=== PATIENT | male | born 1965 | race Caucasian/White ===

== ENCOUNTER 2017-04-11 20:22 | Emergency (ER) | payer MEDICAID, OTHER, SELFPAY ==
--- NOTE | 2017-04-11 20:50 | XR_ITS ---
XR shoulder RT min 2V HISTORY: Pain following injury ITS.REASON: INJURIED SHOULDER WHEN FELL ORDERING PHYSICIAN: Naomi Vega PATIENT AGE: 51 years COMPARISON: None FINDINGS: No fracture or dislocation. No lytic or blastic change. There is normal mineralization. The joint spaces are well-preserved. No significant degenerative/arthritic changes. No erosive changes evident. IMPRESSION: Negative, no acute finding
[2017-04-11 22:02] VITALS: BP 124/85; PULSE 72; RESP 20; O2SAT 97; BMI 41.4
--- NOTE | 2017-04-11 22:12 | HMH.EDUTC ---
[facility] Disposition Clinical Impression: Right anterior shoulder pain Disposition: Home, Self-Care Condition on Discharge: Good Instructions: How to Use a Sling, How To Perform RICE (Rest, Ice, Compress, Elevate), DI for Shoulder Pain Additional Instructions: * See restrictions on workman's comp form. Basically no use right arm until follow up with primary care. * Rest * ice 15-20 mins 3-4 times a day * sling for support and rest. * naproxen every 12 hours taken with meals for pain and inflammation * Remember you had a toradol shot around 1030pm, similiar anti-inflammatory in clinic * No additional anti-inflammatories like motrin, aleve, advil with the above amount of ibuprofen. You CAN still take Tylenol every 4 hours as needed if you need something more for pain. Prescriptions: Naproxen 500 mg PO BID #20 tab Referrals: Scooter Arredondo MD [Primary Care Provider] - (IMMEDIATELY for new or worsening symptoms AND in 3-5 days for follow up exam and review restrictions. Call in the morning and schedule follow up for around Tuesday. be sure to tell them workman's comp and already seen in [facility]. Xray negative. ) Time of Disposition: 22:22 Medical Decision Making Vital Signs: 04/11/17 22:02 Pulse Rate [Brachial] 72 Respiratory Rate 20 Blood Pressure [Right Arm] 124/85 Blood Pressure Mean [Right Arm] 98 Blood Pressure Source [Right Arm] Automatic Cuff Blood Pressure Position [Right Arm] Sitting 02 Sat by Pulse Oximetry 97 Oxygen Delivery Method Room Air Orders (Tests/Meds): ED MEDICATIONS Discontinued Medications Generic Name Dose Route Start Last Admin Trade Name Modesta PRN Reason Stop Dose Admin Ketorolac Tromethamine 60 mg 04/11/17 22:17 04/11/17 22:30 Toradol 60mg/2ml Vial IM 04/11/17 22:18 60 mg ONCE ONE Administration - Radiology Data #1 Image(s): Shoulder (right) Image Reviewed: Yes I have reviewed radiologist's interpretation Preliminary Findings: Normal/NAD (per [facility]) - Timo Inquiry Pt receiving controlled substance: No [facility] HPI - General Stated complaint: WC [id number] INJURED R SHOULDER Time Seen by Provider: 04/11/17 22:00 Mode of Arrival: Ambulatory Source of Information: Patient Limitations: No Limitations Description of Symptoms (Recalled from Triage Doc. by RN): LIFTING AN APC AT WORK TO MOVE IT, TRIPPED AND FELL ON HIS RT SHOULDER. HEENT Symptoms (Recalled from RN notes): No Resp Symptoms (Recalled from RN notes): No Skin Symptoms (Recalled from RN notes): No MS Symptoms (Recalled from RN notes): Yes Functional Status (Recalled from RN notes): NA - History of Present Illness Provider Complaint: c/o right shoulder pain. 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 Reports it hit more on lateral shoulder/upper arm but pain is more so anterior shoulder. Didn't mention it to anyone. Planned to work it out . ended up mentioning it to someone when wasn't any better. They suggested seeking treatment, at least for xrays , since occurred at work. Hasn't taken or tried anything for pain. pt is not sure if UDS required and unable to reach anyone to make that decision. - Related Data Home Medications Medication Instructions Recorded Confirmed allopurinol 100 mg tablet 100 mg PO QDAY 03/29/17 04/11/17 gabapentin 300 mg capsule 300 mg PO TID 03/29/17 lisinopril 10 mg tablet 10 mg PO QDAY 03/29/17 Previous Rx's Medication Instructions Recorded loratadine 10 mg tablet 10 mg PO QDAY #14 tab 03/29/17 Naproxen 500 mg PO BID #20 tab 04/11/17 Allergies Allergy/AdvReac Type Severity Reaction Status Date / Time hydrocodone [HYDROCODONE] Allergy Unknown Verified 03/29/17 13:51 - Worker's Comp Is this a Worker's Comp case?: Yes [facility] History 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: Reports:: Hypertension Other Medical Histo
--- NOTE | 2017-04-11 22:17 | ED_ITS ---
[facility] [place] Clinical Impression: Right anterior shoulder pain Disposition: Home, Self-Care Condition on Discharge: Good Instructions: How to Use a Sling, How To Perform RICE (Rest, Ice, Compress, Elevate), DI for Shoulder Pain Additional Instructions: * See restrictions on workman's comp form. Basically no use right arm until follow up with primary care. * Rest * ice 15-20 mins 3-4 times a day * sling for support and rest. * naproxen every 12 hours taken with meals for pain and inflammation * Remember you had a toradol shot around 1030pm, similiar anti-inflammatory in clinic * No additional anti-inflammatories like motrin, aleve, advil with the above amount of ibuprofen. You CAN still take Tylenol every 4 hours as needed if you need something more for pain. Prescriptions: Naproxen 500 mg PO BID #20 tab Referrals: Scooter Arredondo MD [Primary Care Provider] - (IMMEDIATELY for new or worsening symptoms AND in 3-5 days for follow up exam and review restrictions. Call in the morning and schedule follow up for around Tuesday. be sure to tell them workman's comp and already seen in [facility]. Xray negative. ) Time of Disposition: 22:22 Medical Decision Making Vital Signs: 04/11/17 22:02 Pulse Rate [Brachial] 72 Respiratory Rate 20 Blood Pressure [Right Arm] 124/85 Blood Pressure Mean [Right Arm] 98 Blood Pressure Source [Right Arm] Automatic Cuff Blood Pressure Position [Right Arm] Sitting 02 Sat by Pulse Oximetry 97 Oxygen Delivery Method Room Air Orders (Tests/Meds): ED MEDICATIONS Discontinued Medications Generic Name Dose Route Start Last Admin Trade Name Modesta PRN Reason Stop Dose Admin Ketorolac Tromethamine 60 mg 04/11/17 22:17 04/11/17 22:30 Toradol 60mg/2ml Vial IM 04/11/17 22:18 60 mg ONCE ONE Administration - Radiology Data #1 Image(s): Shoulder (right) Image Reviewed: Yes I have reviewed radiologist's interpretation Preliminary Findings: Normal/NAD (per [facility]) - Timo Inquiry Pt receiving controlled substance: No [facility] [place] - General Stated complaint: WC [id number] INJURED R SHOULDER Time Seen by Provider: 04/11/17 22:00 Mode of Arrival: Ambulatory Source of Information: Patient Limitations: No Limitations Description of Symptoms (Recalled from Triage Doc. by RN): LIFTING AN APC AT WORK TO MOVE IT, TRIPPED AND FELL ON HIS RT SHOULDER. HEENT Symptoms (Recalled from RN notes): No Resp Symptoms (Recalled from RN notes): No Skin Symptoms (Recalled from RN notes): No MS Symptoms (Recalled from RN notes): Yes Functional Status (Recalled from RN notes): NA - History of Present Illness Provider Complaint: c/o right shoulder pain. 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 Reports it hit more on lateral shoulder/upper arm but pain is more so anterior shoulder. Didn't mention it to anyone. Planned to work it out . ended up mentioning it to someone when wasn't any better. They suggested seeking treatment, at least for xrays , since occurred at work. Hasn't taken or tried anything for pain. pt is not sure if UDS required and unable to reach anyone to make that decision. - Related Data Home Medications Medication Instructions Recorded Confirmed allopurinol 100 mg tablet 100 mg PO QDAY
== END 2017-04-11 22:31 | disposition home or self-care (01) ==
PROVIDERS: Emergency Provider Nurse Practitioner Family; PCP Emergency Medicine
DX: M25.511 Pain in right shoulder (principal); I10 Essential (primary) hypertension; M10.9 Gout, unspecified; F17.210 Nicotine dependence, cigarettes, uncomplicated; Z79.899 Other long term (current) drug therapy
CPT/HCPCS: 73030; 96372; 99202

== ENCOUNTER → 2017-10-27 11:32 | Outpatient (CLI) | payer MEDICAID, SELFPAY ==
--- NOTE | 2017-10-27 11:35 | XR_ITS ---
XR foot wt bearing LT 3V HISTORY: ITS.REASON: pain ORDERING PHYSICIAN: Ethel Vinson DPM PATIENT AGE: 51 years COMPARISON: 10/02/2015 FINDINGS: No fracture or dislocation. No lytic or blastic change. There is normal mineralization.. The joint spaces are well-preserved. No significant degenerative/arthritic changes. No erosive changes evident. There are mild osteoarthritic changes of the first metatarsophalangeal joint IMPRESSION: Mild osteoarthritis of the first MTP joint otherwise negative
--- NOTE | 2017-10-27 11:35 | XR_ITS ---
XR foot wt bearing RT 3V HISTORY: ITS.REASON: pain ORDERING PHYSICIAN: Ethel Vinson DPM PATIENT AGE: 51 years COMPARISON: 02/01/2015 FINDINGS: There are prominent hypertrophic changes at the first metatarsophalangeal joint dorsally. Mild osteoarthritic change present at the first MTP joint. No fracture, dislocation, or other significant anomalies. IMPRESSION: Osteoarthritic change with bony hypertrophy at the first metatarsophalangeal joint not significant changed
== END ==
PROVIDERS: Visit Provider Podiatrist
DX: M79.672 Pain in left foot (principal)
CPT/HCPCS: 73630

== ENCOUNTER → 2017-11-28 15:06 | Outpatient (CLI) | payer MEDICAID, SELFPAY ==
--- NOTE | 2017-11-28 15:07 | CT_ITS ---
CT sinus wo con CLINICAL INDICATION: ITS.REASON: sinusitis ORDERING PHYSICIAN: Sreedhar Mckinney MD PATIENT AGE: 52 years COMPARISON: None TECHNIQUE:Axial images obtained with sagittal and coronal reformats. All CT scans at the facility use one or more dose reduction, viz: automated exposure control, ma/kV adjustment per patient size (including targeted exams where dose is matched to indication, i.e. head), or iterative reconstruction technique. FINDINGS: There is mild mucosal thickening of the ethmoid sinuses. Mild mucosal thickening involves the floor of both maxillary sinuses in the roof of the left maxillary sinus. A small bony septation is present along the roof of the left maxillary sinus with mucosal thickening or retention cyst. Frontal sinuses have an unremarkable appearance. No air-fluid levels are evident. No mastoid effusion. There is moderate rightward nasal septal deviation anteriorly with narrowing of the nasal canal. A small sclerotic focus is present in the left frontal's bone inferiorly and may be due to small bone island The orbits have an unremarkable appearance. Unremarkable appearing TMJs IMPRESSION: 1. Mild ethmoid and maxillary sinus disease. No evidence of acute sinusitis. 2. Rightward nasal septal deviation
== END ==
PROVIDERS: PCP Nurse Practitioner Family; Visit Provider Otolaryngology
DX: J30.9 Allergic rhinitis, unspecified (principal); J32.0 Chronic maxillary sinusitis; J34.2 Deviated nasal septum
CPT/HCPCS: 70486

== ENCOUNTER → 2019-10-25 16:45 | Outpatient (CLI) | payer BC, SELFPAY ==
[2019-10-25 17:33] LABS: Alanine Aminotransferase 43 U/L (12-78); Albumin Level 4.3 g/dl (3.5-5.0); Albumin/Globulin Ratio 1.3 (1.1-1.8); Alkaline Phosphatase 97 U/L (38-126); Anion Gap 15.8 mEq/L (5-15); Aspartate Amino Transferase 34 U/L (17-59); Basophils # 0.1 K/mm3 (0-0.2); Basophils % 0.6 % (0.1-2.0); Bilirubin,Total 0.3 mg/dl (0.2-1.3); Blood Urea Nitrogen 8 mg/dl (9-20); Calcium 9.8 mg/dl (8.4-10.2); Carbon Dioxide 29 mmol/L (22.0-30.0); Chloride 100 mmol/L (98-107); Chol/HDL Ratio 4.9 (1-3.5); Cholesterol 238 mg/dl (140-200); Eosinophils # 0.4 K/mm3 (0.0-0.4); Eosinophils % 3.8 % (0.1-12.0); Estimated Glomerular Filt Rate 101 ml/min (>60); GFR (African American) 122 ML/MIN (>60); Globulin 3.4 g/dL (1.3-3.2); Glucose 86 mg/dl (74-100); HDL Cholesterol 49 mg/dl (40-60); Hematocrit 43.5 % (42.0-52.0); Hemoglobin 15.2 g/dL (14.1-18.0); Lymphocytes # 2.5 K/mm3 (0.7-4.5); Lymphocytes % 26.3 % (10-50); Mean Corpuscular Hemoglobin 31.8 pg (27.0-31.2); Mean Corpuscular Volume 90.9 fl (80-94); Monocytes # 0.4 K/mm3 (0.1-1.0); Monocytes % 4.3 % (1.7-9.3); Neutrophils # 6.1 K/mm3 (1.8-7.8); Platelet Count 253 K/mm3 (142-424); Potassium 4.8 mmoL/L (3.5-5.1); Red Blood Count 4.78 M/mm3 (4.60-6.20); Red Cell Distribution Width 13.4 % (11.5-17.5); Sodium 140 mmol/L (136-145); Total Protein,Serum 7.7 g/dl (6.3-8.2); Triglycerides 130 mg/dl (30-150); Uric Acid 7.2 mg/dl (3.5-8.5); VLDL Cholesterol 26 mg/dL (0-40); White Blood Count 9.3 K/mm3 (4.8-10.8)
[2019-10-25 17:44] LABS: Direct LDL Cholesterol 157.77 mg/dL (100-129)
[2019-10-25 18:04] LABS: Prostate Specific Ag Screen 0.4 ng/ml (0.0-4.0); Thyroid Stimulating Hormone 1.27 uIU/mL (0.465-4.68)
== END ==
PROVIDERS: Visit Provider Nurse Practitioner Family
DX: I10 Essential (primary) hypertension (principal); R53.83 Other fatigue; M10.9 Gout, unspecified; Z12.5 Encounter for screening for malignant neoplasm of prostate
CPT/HCPCS: 80053; 80061; 84436; 84443; 84550; 85025; G0103

== ENCOUNTER → 2020-05-08 15:18 | Outpatient (CLI) | payer BC, SELFPAY ==
--- NOTE | 2020-05-08 15:18 | CT_ITS ---
PROCEDURE: CT SINUS WO CON CLINICAL HISTORY: Sinusitis Congestion, deviated septum, chronic sinusitis COMPARISON: CT SINUSWO CT sinus wo con from 11/28/2017 TECHNIQUE: Axial images obtained with sagittal and coronal reformats. All CT scans at the facility use one or more dose reduction, viz: automated exposure control, ma/kV adjustment per patient size (including targeted exams where dose is matched to indication, i.e. head), or iterative reconstruction technique. FINDINGS: There is an air-fluid level in the left frontal sinus. There is extensive debris throughout the ethmoid sinuses with prominent mucosal thickening and mucous retention cysts in the bilateral maxillary sinuses and in the midline sphenoid sinus. These findings were not visible on the prior study. The fine bony structures are faintly visualized. The nasal septum is midline. There is complete occlusion every sinus drainage pathway. There is no involvement of the orbits or skull base. The mastoid air cells are clear. The middle ears are clear. IMPRESSION: New severe diffuse sinusitis with frontal sinus air-fluid level and complete occlusion of all sinus drainage pathways. Dictated by: Amee Bailey MD 05/08/2020 17:35 Amee Bailey MD in [place] 05/08/2020 17:35
== END ==
PROVIDERS: PCP Nurse Practitioner Family; Visit Provider Otolaryngology
DX: J32.9 Chronic sinusitis, unspecified (principal); J34.2 Deviated nasal septum
CPT/HCPCS: 70486

== ENCOUNTER → 2020-06-10 09:42 | Outpatient (CLI) | payer BC, SELFPAY ==
--- NOTE | 2020-06-10 10:13 | ECG_ITS ---
APPROVED REPORT Exam: Resting ECG HR:63 bpm ECG Measurements Heart Rate 63 AXES ID 172 P 31 QRSd 94 QRS 43 QT 402 T 33 QTc 411 Conclusion Normal sinus rhythm Normal ECG Electronically signed by : Everardo Zeng, 06/11/2020 17:48:21
[2020-06-10 10:25] LABS: Basophils # 0.1 K/mm3 (0-0.2); Basophils % 0.8 % (0.1-2.0); Eosinophils # 0.4 K/mm3 (0.0-0.4); Eosinophils % 5.9 % (0.1-12.0); Hematocrit 44.7 % (42.0-52.0); Hemoglobin 14.7 g/dL (14.1-18.0); Lymphocytes # 2.4 K/mm3 (0.7-4.5); Lymphocytes % 31.7 % (10-50); Mean Corpuscular HGB Conc 32.8 g/dL (31.8-35.4); Mean Corpuscular Hemoglobin 30.3 pg (27.0-31.2); Mean Corpuscular Volume 92.5 fl (80-94); Mean Platelet Volume 7.5 fl (7.4-10.4); Monocytes # 0.4 K/mm3 (0.1-1.0); Monocytes % 5.5 % (1.7-9.3); Neutrophils # 4.2 K/mm3 (1.8-7.8); Neutrophils % 56.2 % (37.0-80.0); Platelet Count 244 K/mm3 (142-424); Red Blood Count 4.83 M/mm3 (4.60-6.20); White Blood Count 7.5 K/mm3 (4.8-10.8)
[2020-06-10 11:36] LABS: Coronavirus 19 IgG Antibody Negative (Negative); Coronavirus 19 IgM Antibody Negative (Negative)
== END ==
PROVIDERS: Visit Provider Otolaryngology
DX: Z01.818 Encounter for other preprocedural examination (principal); Z20.822 Contact with and (suspected) exposure to COVID-19; J34.2 Deviated nasal septum
CPT/HCPCS: 36415; 85025; 86328; 93005

== ENCOUNTER 2020-06-12 07:48 | Day surgery (SDC) | payer BC, SELFPAY ==
[2020-06-10 12:44] VITALS: BMI 41.5
[2020-06-12] VITALS (9 sets, daily range): BP systolic 137–154; BP diastolic 65–100; PULSE 70–85; RESP 16–20; TEMP 36.4–37; O2SAT 91–96
--- NOTE | 2020-06-12 09:41 | P.PN_ITS ---
[facility] Anesthesia Checklist - Patient Identification Patient Identification: Arm Band - Structural Data Admitted From: Home Planned Operative Procedure/s: nasal septoplasty Consent for Planned Operative Procedure(s) Verified: Yes Verified Documents: Surgical Consent, History and Physical - NPO Status Verified Time NPO: 00:00 - Additional verifications Anesthesia Reactions: No Hx Blood Transfusions: No Blood Transfusion Reaction: No - Airway Assessment C-Spine Mobility Assessed: Yes (mp2) TMJ Mobility Assessed: Yes Dentition: Poor Dentition - Neurological Assessment Level of Consciousness: Awake, Alert - Anesthesia Plan Anesthesia Risk discussed: Yes Anesthesia Plan: Verified ASA Class: III Anesthesia Type: General [facility] History I have reviewed the patient's past medical history: Yes 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: Reports:: Hypertension Denies:: Cancer, Diabetes Mellitus Type 1, Diabetes Mellitus Type 2, Internal Pacemaker, MRSA, Seizures *Have you ever received a pneumonia vaccine?: No *Have you received a flu vaccine this season?: Yes Other 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: Reports: Sinus Problems, Other. Denies: Blood Transfusion Reaction Anesthesia experience/problems:: nac Other Surgeries: Yes: Other. No: Pacemaker Amputation: No Fractures: No - *Social History Last grade of school completed: 11th or 12th Smoking Status: Light tobacco smoker Tobacco Type: smokeless tobacco Alcohol Intake: never Alcohol Intake Frequency:: a few times a week Substance Use Type: denies use *Occupational Status:: employed Housing: house *Travel in the last 8 weeks: None Family Hx:: Diabetes, Heart Attack
--- NOTE | 2020-06-12 10:02 | HMH.OPNOTE ---
Date of procedure: 06/12/20 Pre-op Diagnosis:: 1. Deviated nasal septum to the right with 90% nasal airflow blockage Post-op Diagnosis:: same Procedure performed:: Nasal septoplasty Surgeon:: Sreedhar Mckinney MD ALINING INSPECTOR:: Rodney Santoro Anesthesia: GETA Estimated blood loss (mL): 20 Operative findings:: same Operative note:: With the patient under general anesthetic the face was prepped and draped the eyes were protected with Steri-Strips the nose was decongested with topical cocaine. And 5 cc of 2% lidocaine with epi were injected into the nasal antral yepez and septum. Left hemitransfixion incision was made in the mucoperichondrium and mucoperiosteum was elevated from both sides of the nasal septum the septum was moderately vascular and bleeding was stopped with bipolar cautery. The quadrangular cartilage was trimmed anteriorly and inferiorly and the septum was placed in the midline and held there with transfixion and hemitransfixion chromic sutures. Bleeding Was stopped with bipolar cautery. Surgicel snow was placed between the flaps. The patient Tolerated the procedure well and was sent to recovery in good general condition. Condition: stable Disposition: PACU Complications:: none
--- NOTE | 2020-06-12 10:08 | HMH.ANESI ---
[facility] Anesthesia Record Part I Intake, IV Amount: 800 Estimated blood loss (mL): 5 Urine output (mL): 0 Blood Pressure: 150/83 SaO2: 91 Pulse Rate: 80 Respiratory Rate: 16 Temperature: 98.1 F Patient is:: Drowsy, Stable Stable to PACU at:: 10:05
[2020-06-13 10:09] VITALS: BP 149/100; PULSE 78; TEMP 36.6
--- NOTE | 2020-06-13 10:09 | P.PN_ITS ---
[facility] Anesthesia Record Part II Discharge Time: 10:35 Destination: Surgical Day Care (OP Surgery) PACU nurse assessment reviewed?: Yes Patient Condition:: Good Anesthesia Complications:: None Swallowing reflex intact?: Yes Cyanosis?: No Blood Pressure: 149/100 Pulse Rate: 78 Temperature: 97.9 F Mental Status: Alert & Oriented Pain level:: 0 Nausea and/or vomitting:: None Intake, IV Amount: 0
== END 2020-06-12 11:07 | disposition home or self-care (01) ==
LOC: OR 07:48
PROVIDERS: PCP Nurse Practitioner Family; Visit Provider Otolaryngology
PROC: (CPT 30520; principal; 2020-06-12 09:45)
DX: J34.2 Deviated nasal septum (principal); I10 Essential (primary) hypertension; Z79.899 Other long term (current) drug therapy; Z88.2 Allergy status to sulfonamides
CPT/HCPCS: 30520; 96374; 96375; J2405; J2710

== ENCOUNTER → 2020-10-14 09:07 | Outpatient (CLI) | payer BC, SELFPAY ==
--- NOTE | 2020-10-14 09:15 | XR_ITS ---
PROCEDURE: XR CHEST PORTABLE CLINICAL HISTORY: cough/COVID OUTPATIENT COMPARISON: CR CXR2V XR chest 2V from 08/02/2017 CR XR CHEST AP from 03/16/2019 FINDINGS: The cardiomediastinal silhouette and pulmonary vascularity are within normal limits. The lungs are clear without infiltrates, suspicious nodules, or pleural effusions. There is evidence of old granulomatous disease. No acute bony findings. IMPRESSION: No acute findings. Dictated by: Wiley Brooks MD 10/14/2020 09:44 Wiley Brooks MD in [place] 10/14/2020 09:44
[2020-10-14 09:34] LABS: MANUAL DIFFERENTIAL MANUAL DIFFERENTIAL (MANUAL DIFF)
[2020-10-14 09:39] LABS: Basophils # 0.1 K/mm3 (0-0.2); Basophils % 0.6 % (0.1-2.0); Eosinophils # 0.6 K/mm3 (0.0-0.4); Eosinophils % 6.6 % (0.1-12.0); Hematocrit 45.1 % (42.0-52.0); Hemoglobin 14.9 g/dL (14.1-18.0); Lymphocytes # 2.5 K/mm3 (0.7-4.5); Lymphocytes % 27.5 % (10-50); Mean Corpuscular HGB Conc 32.9 g/dL (31.8-35.4); Mean Corpuscular Hemoglobin 29.6 pg (27.0-31.2); Mean Corpuscular Volume 90.1 fl (80-94); Mean Platelet Volume 7.6 fl (7.4-10.4); Monocytes # 0.5 K/mm3 (0.1-1.0); Monocytes % 5.2 % (1.7-9.3); Neutrophils # 5.4 K/mm3 (1.8-7.8); Platelet Count 224 K/mm3 (142-424); Red Blood Count 5.01 M/mm3 (4.60-6.20); Red Cell Distribution Width 13.2 % (11.5-17.5)
[2020-10-14 09:46] LABS: Chloride 107 mmol/L (98-107); Potassium 4.4 mmoL/L (3.5-5.1); Sodium 140 mmol/L (136-145)
[2020-10-14 09:49] LABS: Alanine Aminotransferase 44 U/L (12-78); Albumin Level 4.5 g/dl (3.5-5.0); Albumin/Globulin Ratio 1.3 (1.1-1.8); Alkaline Phosphatase 97 U/L (38-126); Anion Gap 13.4 mEq/L (5-15); Aspartate Amino Transferase 35 U/L (17-59); Bilirubin,Total 0.5 mg/dl (0.2-1.3); Blood Urea Nitrogen 7 mg/dl (9-20); Calcium 9.2 mg/dl (8.4-10.2); Carbon Dioxide 24 mmol/L (22.0-30.0); Estimated Glomerular Filt Rate 100 ml/min (>60); GFR (African American) 121 ML/MIN (>60); Globulin 3.6 g/dL (1.3-3.2); Glucose 102 mg/dl (74-100); Total Protein,Serum 8.1 g/dl (6.3-8.2)
[2020-10-14 11:14] LABS: Eosinophils % 8 % (0-3); Lymphocytes % 26 % (10-50); Monocytes % 5 % (2-9); Neutrophils % 61 % (42-76); Total Cells Counted 100
[2020-10-14 11:15] LABS: Platelet Estimate Normal; RBC Morphology Normal
== END ==
PROVIDERS: PCP Nurse Practitioner Family; Visit Provider Otolaryngology
DX: Z01.812 Encounter for preprocedural laboratory examination (principal); Z11.52 Encounter for screening for COVID-19; J03.90 Acute tonsillitis, unspecified
CPT/HCPCS: 36415; 71045; 80053; 85007; 85014; 85018; 85048; 85049; U0003

== ENCOUNTER 2022-01-03 03:15 | Emergency (ER) | payer OTHER, SELFPAY ==
[2022-01-03 03:16] VITALS: BP 163/91; PULSE 71; RESP 16; TEMP 36.7; O2SAT 98; BMI 42.0
--- NOTE | 2022-01-03 03:43 | HMH.EDURI ---
Discharge Plan Disposition Patient Disposition: Home, Self-Care Prescriptions Prescriptions: New prednisone [prednisone] 20 mg tablet 20 mg PO BID Qty: 10 0RF cephalexin [cephalexin] 500 mg capsule 500 mg PO TID Qty: 30 0RF No Action azelastine 205.5 mcg (0.15 %) spray,non-aerosol 1 spray INTRANASAL BID Qty: 30 3RF Rx Instructions: administer into each nostril nystatin 100,000 unit/mL suspension 5 ml PO DAILY Qty: 60 0RF Rx Instructions: swish and swallow famotidine 20 mg tablet See Rx Instructions .ROUTE .COMPLEX Qty: 30 2RF Dose Instruction: TAKE ONE TABLET BY MOUTH ONCE A DAY Rx Instructions: TAKE ONE TABLET BY MOUTH ONCE A DAY allopurinol 100 mg tablet See Rx Instructions .ROUTE .COMPLEX Qty: 30 2RF Dose Instruction: TAKE ONE TABLET BY MOUTH EVERY DAY FOR GOUT Rx Instructions: TAKE ONE TABLET BY MOUTH EVERY DAY FOR GOUT lisinopril 10 mg tablet See Rx Instructions .ROUTE .COMPLEX Qty: 30 2RF Dose Instruction: TAKE ONE TABLET BY MOUTH EVERY DAY FOR HYPERTENSION Rx Instructions: TAKE ONE TABLET BY MOUTH EVERY DAY FOR HYPERTENSION fexofenadine 180 MG tablet 180 mg PO DAILY Referrals Follow up/Referrals: Anyi Hanley PA [Primary Care Provider] - See instructions Clinical Impressions Clinical Impression: Sinusitis Instructions Patient Instructions: DI for Sinusitis Discharge ED Provider: Scooter Arredondo URI/Sore Throat HPI General Chief Complaint: Upper Respiratory Infection Stated Complaint: Sinus pressure/pain Time Seen by Provider: 01/03/22 03:43 Mode of Arrival: Ambulatory Source of Information: Patient and Medical Record Limitations: No Limitations Description of Symptoms (Recalled from ER Triage Doc. by RN): pt states he has chronic sinus issues and he ishavinf a flare up. tonight he came in because he could not keep handle the pressure under his cpap machine. the pt stated that the pain is in the left side of his head all the way to his jaw. pt states also that he hasnt taken any sinus medication. pt reported that he has a septum surgery last year and it has not helped with his chronic sinus issues. History of Present Illness HPI Narrative: has acute rt facial pain with hx of sinusitis MD Complaint: nasal congestion and sinus pain Onset (ago): day(s) Duration: intermittent Severity: moderate Able to tolerate fluids by mouth: Yes Associated symptoms: denies other symptoms Related Data Home Medications Medication Instructions Recorded Confirmed fexofenadine 180 mg tablet 180 mg PO DAILY allergies 06/10/20 11/11/20 Previous Rx's Medication Instructions Recorded nystatin 100,000 unit/mL oral 5 ml PO DAILY #60 mL 10/31/20 suspension azelastine 205.5 mcg (0.15 %) 1 spray intranasal BID #30 mL 11/11/20 nasal spray famotidine 20 mg tablet See Rx Instructions .Route 06/23/21 .COMPLEX #30 tabs allopurinol 100 mg tablet See Rx Instructions .Route 08/21/21 .COMPLEX #30 tabs lisinopril 10 mg tablet See Rx Instructions .Route 08/21/21 .COMPLEX #30 tabs cephalexin 500 mg capsule 500 mg PO TID #30 caps 01/03/22 prednisone 20 mg tablet 20 mg PO BID #10 tabs 01/03/22 Allergies Allergy/AdvReac Type Severity Reaction Status Date / Time No Known Allergies Allergy Verified 11/11/20 08:50 PFSH PFSH Social History Smoking Status: Unknown if ever smoked alcohol intake: current substance use type: denies use current occupational status: employed Travel in the last 8 weeks: None housing: house current occupation: [employer] caffeine: Yes ROS Obtained: Yes All systems reviewed & no additional complaints except as documented Physical Exam General General appearance: alert Head Head exam: normocephalic Eye Eye exam: Present PERRL and EOMI Expanded ENT Exam TM/Canal exam: Left TM: effusion Neck Neck exam: Present trachea midline Respiratory Respirator
[2022-01-03 03:50] VITALS: BP 163/91; PULSE 77; RESP 18; TEMP 36.7; O2SAT 98
== END 2022-01-03 03:54 | disposition home or self-care (01) ==
PROVIDERS: Emergency Provider Emergency Medicine; PCP Physician Assistant
DX: J06.9 Acute upper respiratory infection, unspecified (principal); R68.84 Jaw pain; R51.9 Headache, unspecified; J32.9 Chronic sinusitis, unspecified; Z79.52 Long term (current) use of systemic steroids; Z79.899 Other long term (current) drug therapy
CPT/HCPCS: 96372; 99283; 99284; J0696

== ENCOUNTER 2022-05-04 09:33 | Emergency (ER) | payer SELFPAY ==
[2022-05-04 09:50] VITALS: BP 138/76; PULSE 80; RESP 19; TEMP 38.2; O2SAT 96; BMI 39.9
--- NOTE | 2022-05-04 10:34 | EXP.UTC ---
Discharge Plan Disposition Patient Disposition: Home, Self-Care Condition: Good Prescriptions Prescriptions: New azithromycin [Zithromax Z-Brent] 250 mg tablet See Rx Instructions .ROUTE .COMPLEX 5 Days Qty: 6 0RF Rx Instructions: For 250 mg dose pack: take 500 mg today (day 1), then 250 mg for 4 days (days 2-5) methylprednisolone [Medrol (Brent)] 4 mg tablets,dose pack See Rx Instructions .Route .COMPLEX 6 Days Qty: 21 0RF Rx Instructions: taper pack; No Action allopurinol 100 mg tablet See Rx Instructions .ROUTE .COMPLEX Rx Instructions: TAKE ONE TABLET BY MOUTH EVERY DAY FOR GOUT lisinopril 10 mg tablet See Rx Instructions .ROUTE .COMPLEX Rx Instructions: TAKE ONE TABLET BY MOUTH EVERY DAY FOR HYPERTENSION Referrals Follow up/Referrals: Kathleen Keith APRN [Primary Care Provider] - See instructions Activity Restrictions/Add. Instructions Additional Instructions/Restrictions: *Monitor Temp, Over the counter Motrin or Tylenol as directed/as needed Tylenol every 4 hours and Motrin every 6 hours (as long as your family doctor has told you that you can take it) for fever or pain. and straight to ER if unable to lower temp less than 101.0 after medication given *Warm salt water gargles may help to soothe the throat *Throat Lozenges? *Warm fluids like tea with honey may help to soothe the throat? *Sleep elevated *Humidifier/Vaporizer Your throat swab was sent for culture. Those results are typically sent to your primary care. Be sure to follow up in 2-3 days with your family doctor/primary care physician if no improvement so they can review those result and treat if necessary. If you don?t have a primary care doctor, I recommend you get one but in the mean time, you will have to return to a walk in clinic Follow up IMMEDIATELY for new or worsening symptoms or no Noticeable improvement over the next 48-72 hours. 911 for difficulty breathing or swallowing Clinical Impressions Clinical Impression: Sinusitis Qualifiers: Sinusitis location: unspecified location Chronicity: unspecified Qualified Code(s): J32.9 - Chronic sinusitis, unspecified Stand Alone Forms Stand Alone Forms: Work/School Release Instructions Patient Instructions: Sinusitis, DI for Sinusitis Discharge ED Provider: Zainab Bautista [facility] [place] HPI General Stated complaint: Chills,Sore throat,Bodyaches Mode of Arrival: Ambulatory Source of Information: Patient Limitations: No Limitations Time Seen by Provider: 05/04/22 10:35 Description of Symptoms (Recalled from Triage Doc. by RN): freezing, aches, cough, MINOR, chest congestion, productive cough HEENT Symptoms (Recalled from RN notes): Yes Resp Symptoms (Recalled from RN notes): No Skin Symptoms (Recalled from RN notes): No MS Symptoms (Recalled from RN notes): No Functional Status (Recalled from RN notes): n/a History of Present Illness Provider Complaint: Patient states that he has been having sinus pain and pressure for over a week States that yesterday he started with cough that is productive at times, sore throat, body aches, chills and headache States that he feels like it is a bad sinus infection so he came in Related Data Home Medications Medication Instructions Recorded Confirmed allopurinol 100 mg tablet See Rx Instructions .Route 05/04/22 05/04/22 .COMPLEX . lisinopril 10 mg tablet See Rx Instructions .Route 05/04/22 05/04/22 .COMPLEX . Previous Rx's Medication Instructions Recorded azithromycin 250 mg tablet See Rx Instructions PO .COMPLEX 5 05/04/22 (Zithromax Z-Brent) days #6 tabs methylprednisolone 4 mg tablets in See Rx Instructions .Route 05/04/22 a dose pack (Medrol (Brent)) .COMPLEX 6 days #21 tabs Allergies Allergy/AdvReac Type Severity Reaction Status Date / Time No Known Allergies Allergy Verified 05/04/22 10:10 Worker's Comp Is this a Worker's Comp case?: No [facility] Disclaime
[2022-05-04 10:47] LABS: UTC Influenza A Antigen Negative (Negative); UTC Strep Screen (Rapid) Negative (Negative)
[2022-05-04 10:48] LABS: UTC Influenza B Antigen Negative (Negative)
[2022-05-04 11:32] VITALS: BP 138/76; PULSE 80; RESP 20; TEMP 38.2; O2SAT 96
== END 2022-05-04 11:32 | disposition home or self-care (01) ==
PROVIDERS: Emergency Provider Nurse Practitioner; PCP Nurse Practitioner Family
DX: J32.9 Chronic sinusitis, unspecified (principal)
CPT/HCPCS: 87804; 87880; 96372; 99212; 99213; G0463; J0696

== ENCOUNTER 2022-10-16 10:51 | Emergency (ER) | payer BC, SELFPAY ==
[2022-10-16 10:51] VITALS: BP 165/108; PULSE 79; RESP 18; TEMP 36.9; O2SAT 91; BMI 37.5
--- NOTE | 2022-10-16 11:25 | EXP.UTC ---
Discharge Plan Disposition Patient Disposition: Home, Self-Care Condition: Good Prescriptions Prescriptions: New azithromycin [Zithromax] 250 mg tablet 250 mg PO UD DOSE PK Qty: 6 0RF Rx Instructions: Take two (2) tablets today, then one (1) tablet days #2 thru #5 benzonatate [benzonatate] 100 mg capsule 100 mg PO TIDP PRN (Reason: Cough) Qty: 30 0RF methylprednisolone 4 mg Tablets,Dose Pack 4 mg PO DIRECTED Qty: 21 0RF No Action allopurinol 100 mg tablet See Rx Instructions .ROUTE .COMPLEX Rx Instructions: TAKE ONE TABLET BY MOUTH EVERY DAY FOR GOUT lisinopril 10 mg tablet See Rx Instructions .ROUTE .COMPLEX Rx Instructions: TAKE ONE TABLET BY MOUTH EVERY DAY FOR HYPERTENSION azithromycin [Zithromax Z-Brent] 250 mg tablet See Rx Instructions .ROUTE .COMPLEX 5 Days Qty: 6 0RF Rx Instructions: For 250 mg dose pack: take 500 mg today (day 1), then 250 mg for 4 days (days 2-5) methylprednisolone [Medrol (Brent)] 4 mg tablets,dose pack See Rx Instructions .Route .COMPLEX 6 Days Qty: 21 0RF Rx Instructions: taper pack; Referrals Follow up/Referrals: Scooter Arredondo MD [Primary Care Provider] - See instructions Activity Restrictions/Add. Instructions Additional Instructions/Restrictions: Drink plenty of fluids. Take tylenol for pain or fever. Take the medications as directed. Follow up with your regular doctor. GO TO THE ER FOR ANY WORSENING SYMPTOMS Don't start the oral steroids until tomorrow, since you had the shot here today. Clinical Impressions Clinical Impression: Sinusitis Instructions Patient Instructions: Ceftriaxone Injection, Dexamethasone Injection Discharge ED Provider: Ross Washburn [facility] General Stated complaint: chest congestion,cough Mode of Arrival: Ambulatory Source of Information: Patient Limitations: No Limitations Time Seen by Provider: 10/16/22 11:04 HEENT Symptoms (Recalled from RN notes): Yes Resp Symptoms (Recalled from RN notes): No Skin Symptoms (Recalled from RN notes): No MS Symptoms (Recalled from RN notes): No Functional Status (Recalled from RN notes): wnl History of Present Illness Provider Complaint: Patient reports cough, runny nose and sinus problems since last weekend. Related Data Home Medications Medication Instructions Recorded Confirmed allopurinol 100 mg tablet See Rx Instructions .Route 05/04/22 05/04/22 .COMPLEX . lisinopril 10 mg tablet See Rx Instructions .Route 05/04/22 05/04/22 .COMPLEX . Previous Rx's Medication Instructions Recorded azithromycin 250 mg tablet See Rx Instructions PO .COMPLEX 5 05/04/22 (Zithromax Z-Brent) days #6 tabs methylprednisolone 4 mg tablets in See Rx Instructions .Route 05/04/22 a dose pack (Medrol (Brent)) .COMPLEX 6 days #21 tabs azithromycin 250 mg tablet 250 mg PO UD DOSE PK #6 tabs 10/16/22 (Zithromax) benzonatate 100 mg capsule 100 mg PO TIDP PRN Cough #30 caps 10/16/22 methylprednisolone 4 mg tablets in 4 mg PO DIRECTED #21 tabs 10/16/22 a dose pack Allergies Allergy/AdvReac Type Severity Reaction Status Date / Time No Known Allergies Allergy Verified 05/04/22 10:10 Worker's Comp Is this a Worker's Comp case?: No [facility] Disclaimer: The information contained in this section may have been updated after the patient was seen, as this information can be updated by other users. Social History Smoking Status: Unknown if ever smoked alcohol intake: current substance use type: denies use current occupational status: employed Travel in the last 8 weeks: None housing: house current occupation: [employer] caffeine: Yes ROS Obtained: Yes All systems reviewed & no additional complaints except as documented Constitutional Constitutional: Reports poor appetite Eyes Eyes: Reports system reviewed and no additional complaints, except
[2022-10-16 11:53] VITALS: BP 165/108; PULSE 79; RESP 18; TEMP 36.9; O2SAT 91
== END 2022-10-16 11:56 | disposition home or self-care (01) ==
PROVIDERS: Emergency Provider Nurse Practitioner Family; PCP Emergency Medicine
DX: J01.90 Acute sinusitis, unspecified (principal)
CPT/HCPCS: 96372; 99212; 99214; G0463; J0696

== ENCOUNTER 2023-01-01 08:45 | Emergency (ER) | payer BC, SELFPAY ==
[2023-01-01 08:50] VITALS: BP 131/82; PULSE 68; RESP 18; TEMP 36.9; O2SAT 98; BMI 38.7
--- NOTE | 2023-01-01 09:01 | EXP.UTC ---
Discharge Plan Disposition Patient Disposition: Home, Self-Care Condition: Good Prescriptions Prescriptions: New azithromycin [Zithromax Z-Brent] 250 mg tablet See Rx Instructions .ROUTE .COMPLEX 5 Days Qty: 6 0RF Rx Instructions: For 250 mg dose pack: take 500 mg today (day 1), then 250 mg for 4 days (days 2-5) methylprednisolone [Medrol (Brent)] 4 mg tablets,dose pack See Rx Instructions .Route .COMPLEX 6 Days Qty: 21 0RF Rx Instructions: taper pack; No Action allopurinol 100 mg tablet 100 mg PO DAILY Rx Instructions: TAKE ONE TABLET BY MOUTH EVERY DAY FOR GOUT lisinopril 10 mg tablet 10 mg PO DAILY Rx Instructions: TAKE ONE TABLET BY MOUTH EVERY DAY FOR HYPERTENSION Referrals Follow up/Referrals: Scooter Arredondo MD [Primary Care Provider] - See instructions Activity Restrictions/Add. Instructions Additional Instructions/Restrictions: *Monitor Temp, Over the counter Motrin or Tylenol as directed/as needed Tylenol every 4 hours and Motrin every 6 hours (as long as your family doctor has told you that you can take it) for fever or pain. and straight to ER if unable to lower temp less than 101.0 after medication given *Warm salt water gargles may help to soothe the throat *Throat Lozenges? *Warm fluids like tea with honey may help to soothe the throat? *Sleep elevated *Humidifier/Vaporizer Take medication as prescribed Follow up IMMEDIATELY for new or worsening symptoms or no Noticeable improvement over the next 48-72 hours. 911 for difficulty breathing or swallowing Clinical Impressions Clinical Impression: Sinusitis Qualifiers: Sinusitis location: unspecified location Chronicity: unspecified Qualified Code(s): J32.9 - Chronic sinusitis, unspecified Instructions Patient Instructions: DI for Sinusitis, Sinusitis Discharge ED Provider: Zainab Bautista [facility] General Stated complaint: runny nose, h/a, congestion Mode of Arrival: Ambulatory Source of Information: Patient Limitations: No Limitations Time Seen by Provider: 01/01/23 09:01 Description of Symptoms (Recalled from Triage Doc. by RN): PATIENT C/O SINUS PRESSURE AND HEADACHE X 2 WEEKS HEENT Symptoms (Recalled from RN notes): Yes Resp Symptoms (Recalled from RN notes): No Skin Symptoms (Recalled from RN notes): No MS Symptoms (Recalled from RN notes): No Functional Status (Recalled from RN notes): WNL History of Present Illness Provider Complaint: Patient states that he has been having having sinus pain and pressure for about 2 weeks States that he has taken OTC medications but nothing has helped States today his sinus pressure was worse so he came in to get checked Related Data Home Medications Medication Instructions Recorded Confirmed allopurinol 100 mg tablet 100 mg PO DAILY GOUT 05/04/22 01/01/23 lisinopril 10 mg tablet 10 mg PO DAILY Hypertension 05/04/22 01/01/23 Previous Rx's Medication Instructions Recorded azithromycin 250 mg tablet See Rx Instructions PO .COMPLEX 5 01/01/23 (Zithromax Z-Brent) days #6 tabs methylprednisolone 4 mg tablets in See Rx Instructions .Route 01/01/23 a dose pack (Medrol (Brent)) .COMPLEX 6 days #21 tabs Allergies Allergy/AdvReac Type Severity Reaction Status Date / Time No Known Allergies Allergy Verified 05/04/22 10:10 Worker's Comp Is this a Worker's Comp case?: No [facility] Disclaimer: The information contained in this section may have been updated after the patient was seen, as this information can be updated by other users. 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 (Updated 01/01/23 @ 09:04 by Zainab Bautista APRN) Gout Hypertension Social History Smoking Status: Unknown if ever smoked alcohol intake: current substance use type: denies use current occupational status: employed Travel in the last 8 weeks: None housing: house current occupation: [employer]
[2023-01-01 09:02] VITALS: BP 131/82; PULSE 68; RESP 18; TEMP 36.9; O2SAT 98
== END 2023-01-01 09:30 | disposition home or self-care (01) ==
PROVIDERS: Emergency Provider Nurse Practitioner; PCP Emergency Medicine
DX: J01.90 Acute sinusitis, unspecified (principal); I10 Essential (primary) hypertension; M10.00 Idiopathic gout, unspecified site
CPT/HCPCS: 99212; 99214; G0463; J0696

== ENCOUNTER 2023-02-18 16:26 | Emergency (ER) | payer BC, SELFPAY ==
[2023-02-18 17:20] VITALS: BP 147/87; PULSE 68; RESP 18; TEMP 37.1; O2SAT 98; BMI 39.9
--- NOTE | 2023-02-18 17:35 | EXP.UTC ---
Discharge Plan Disposition Patient Disposition: Home, Self-Care Condition: Good Prescriptions Prescriptions: New prednisone 10 mg tablet 10 mg PO DIRECTED 9 Days Qty: 21 0RF Rx Instructions: Take 4 tablets daily for 3 days, then take 2 tablets daily for 3 days, then take 1 tablet daily for 3 days, then stop. benzonatate [benzonatate] 100 mg capsule 100 mg PO TIDP PRN (Reason: Cough) Qty: 30 0RF amoxicillin-pot clavulanate 875-125 mg Tablet 1 tab PO Q12H Qty: 20 0RF guaifenesin [Mucinex] 600 mg tablet extended release 12hr 600 - 1,200 mg PO BIDP PRN (Reason: Congestion) Qty: 30 0RF No Action allopurinol 100 mg tablet 100 mg PO DAILY Rx Instructions: TAKE ONE TABLET BY MOUTH EVERY DAY FOR GOUT lisinopril 10 mg tablet 10 mg PO DAILY Rx Instructions: TAKE ONE TABLET BY MOUTH EVERY DAY FOR HYPERTENSION Referrals Follow up/Referrals: Anyi Hanley PA [Primary Care Provider] - See instructions Activity Restrictions/Add. Instructions Additional Instructions/Restrictions: Drink plenty of fluids. Take tylenol or ibuprofen for pain or fever. Take the medications as directed. Follow up with your regular doctor. GO TO THE ER FOR ANY WORSENING SYMPTOMS Don't start the oral steroids until tomorrow, since you had the shot here today. Clinical Impressions Clinical Impression: Sinusitis Instructions Patient Instructions: DI for Sinusitis, Sinusitis Discharge ED Provider: Ross Washburn [facility] General Stated complaint: sinus issues Time Seen by Provider: 02/18/23 17:35 History of Present Illness Provider Complaint: He states that for the past 3 weeks he has had worsening sinus congestion and ear pressure. He denies any fever/chills/body aches. Related Data Home Medications Medication Instructions Recorded Confirmed allopurinol 100 mg tablet 100 mg PO DAILY GOUT 05/04/22 02/18/23 lisinopril 10 mg tablet 10 mg PO DAILY Hypertension 05/04/22 02/18/23 Previous Rx's Medication Instructions Recorded amoxicillin 875 mg-potassium 1 tab PO Q12H #20 tabs 02/18/23 clavulanate 125 mg tablet benzonatate 100 mg capsule 100 mg PO TIDP PRN Cough #30 caps 02/18/23 guaifenesin 600 mg tablet, 600 - 1,200 mg PO BIDP PRN 02/18/23 extended release 12 hr (Mucinex) Congestion #30 tabs prednisone 10 mg tablet 10 mg PO DIRECTED 9 days #21 02/18/23 tabs Allergies Allergy/AdvReac Type Severity Reaction Status Date / Time No Known Allergies Allergy Verified 02/18/23 17:39 [facility] Disclaimer: The information contained in this section may have been updated after the patient was seen, as this information can be updated by other users. 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 (Updated 02/18/23 @ 17:49 by Ross Washburn APRN) Gout Hypertension Social History Smoking Status: Unknown if ever smoked alcohol intake: current substance use type: denies use current occupational status: employed Travel in the last 8 weeks: None housing: house current occupation: [employer] caffeine: Yes ROS Obtained: Yes All systems reviewed & no additional complaints except as documented Constitutional Constitutional: Reports poor appetite Eyes Eyes: Reports system reviewed and no additional complaints, except as documented ENT Ears, Nose, Mouth, and Throat: Reports as per HPI Cardiovascular Cardiovascular: Reports system reviewed and no additional complaints, except as documented and Denies chest pain Respiratory Respiratory: Denies shortness of breath, Reports chest congestion, Reports cough, Denies stridor and Denies wheezing Gastrointestinal Gastrointestingal: Reports system reviewed and no additional complaints, except as documented; Denies abdominal pain, diarrhea or vomiting Musculoskeletal Musculoskeletal: Reports system reviewed and no additional complaints, except as documented and Denies arthralgias In
[2023-02-18 18:11] VITALS: BP 147/87; PULSE 68; RESP 18; TEMP 37.1; O2SAT 98
== END 2023-02-18 18:11 | disposition home or self-care (01) ==
PROVIDERS: Emergency Provider Nurse Practitioner Family; PCP Physician Assistant
DX: J01.90 Acute sinusitis, unspecified (principal); R09.81 Nasal congestion; H92.09 Otalgia, unspecified ear; I10 Essential (primary) hypertension
CPT/HCPCS: 96372; 99212; 99214; G0463; J0696

== ENCOUNTER 2023-03-05 09:02 | Emergency (ER) | payer BC, SELFPAY ==
--- NOTE | 2023-03-05 09:11 | EXP.UTC ---
Discharge Plan Disposition Patient Disposition: Home, Self-Care Condition: Good Prescriptions Prescriptions: New azithromycin [Zithromax] 250 mg tablet 250 mg PO UD DOSE PK Qty: 6 0RF Rx Instructions: Take two (2) tablets today, then one (1) tablet days #2 thru #5 methylprednisolone 4 mg Tablets,Dose Pack 4 mg PO DIRECTED Qty: 21 0RF guaifenesin [Mucinex] 600 mg tablet extended release 12hr 600 - 1,200 mg PO BIDP PRN (Reason: Congestion) Qty: 30 0RF No Action allopurinol 100 mg tablet 100 mg PO DAILY Rx Instructions: TAKE ONE TABLET BY MOUTH EVERY DAY FOR GOUT lisinopril 10 mg tablet 10 mg PO DAILY Rx Instructions: TAKE ONE TABLET BY MOUTH EVERY DAY FOR HYPERTENSION Referrals Follow up/Referrals: Kathleen Keith APRN [Primary Care Provider] - See instructions Activity Restrictions/Add. Instructions Additional Instructions/Restrictions: Drink plenty of fluids. Take tylenol or ibuprofen for pain or fever. Take the medications as directed. Follow up with your regular doctor. GO TO THE ER FOR ANY WORSENING SYMPTOMS Don't start the oral steroids until tomorrow, since you had the shot here today. Clinical Impressions Clinical Impression: Sinusitis Instructions Patient Instructions: Sinusitis, DI for Sinusitis Discharge ED Provider: Ross Washburn [facility] General Stated complaint: congestion, cough Time Seen by Provider: 03/05/23 09:11 History of Present Illness Provider Complaint: She states that for the past 2 weeks she has had sinus congestion. Related Data Home Medications Medication Instructions Recorded Confirmed allopurinol 100 mg tablet 100 mg PO DAILY GOUT 05/04/22 03/05/23 lisinopril 10 mg tablet 10 mg PO DAILY Hypertension 05/04/22 03/05/23 Previous Rx's Medication Instructions Recorded azithromycin 250 mg tablet 250 mg PO UD DOSE PK #6 tabs 03/05/23 (Zithromax) guaifenesin 600 mg tablet, 600 - 1,200 mg PO BIDP PRN 03/05/23 extended release 12 hr (Mucinex) Congestion #30 tabs methylprednisolone 4 mg tablets in 4 mg PO DIRECTED #21 tabs 03/05/23 a dose pack Allergies Allergy/AdvReac Type Severity Reaction Status Date / Time No Known Allergies Allergy Verified 02/18/23 17:39 [facility] Disclaimer: The information contained in this section may have been updated after the patient was seen, as this information can be updated by other users. 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 (Updated 03/05/23 @ 09:45 by Ross Washburn APRN) Gout Hypertension Social History Smoking Status: Unknown if ever smoked alcohol intake: current substance use type: denies use current occupational status: employed Travel in the last 8 weeks: None housing: house current occupation: [employer] caffeine: Yes ROS Obtained: Yes All systems reviewed & no additional complaints except as documented Constitutional Constitutional: Reports poor appetite Eyes Eyes: Reports system reviewed and no additional complaints, except as documented ENT Ears, Nose, Mouth, and Throat: Reports as per HPI Cardiovascular Cardiovascular: Reports system reviewed and no additional complaints, except as documented and Denies chest pain Respiratory Respiratory: Denies shortness of breath, Reports chest congestion, Reports cough, Denies stridor and Denies wheezing Gastrointestinal Gastrointestingal: Reports system reviewed and no additional complaints, except as documented; Denies abdominal pain, diarrhea or vomiting Musculoskeletal Musculoskeletal: Reports system reviewed and no additional complaints, except as documented and Denies arthralgias Integumentary/Breasts Skin/Breast: Reports system reviewed and no additional complaints, except as documented and Denies rash Neurologic Neurologic: Denies paresthesias Allergic/Immunologic Allergic/Immunologic: Denies wheezing Physical Exam General General appe
[2023-03-05 09:15] VITALS: BP 187/92; PULSE 67; RESP 20; TEMP 36.6; O2SAT 99; BMI 41.1
[2023-03-05 09:51] VITALS: BP 187/92; PULSE 67; RESP 20; TEMP 36.6; O2SAT 99
== END 2023-03-05 09:55 | disposition home or self-care (01) ==
PROVIDERS: Emergency Provider Nurse Practitioner Family; PCP Nurse Practitioner Family
DX: J01.90 Acute sinusitis, unspecified; R09.81 Nasal congestion; R05.9 Cough, unspecified; R09.89 Other specified symptoms and signs involving the circulatory and respiratory systems; I10 Essential (primary) hypertension
CPT/HCPCS: 96372; 99212; 99214; G0463; J0696

== ENCOUNTER 2023-05-14 11:06 | Emergency (ER) | payer BC, SELFPAY ==
[2023-05-14 11:55] VITALS: BP 172/99; PULSE 60; RESP 22; TEMP 36.8; O2SAT 98; BMI 41.1
--- NOTE | 2023-05-14 12:22 | EXP.UTC ---
Discharge Plan Disposition Patient Disposition: Home, Self-Care Condition: Good Prescriptions Prescriptions: New azithromycin [azithromycin] 250 mg tablet 250 mg PO DIRECTED Qty: 6 0RF Rx Instructions: Take two (2) tablets on day #1, then one (1) tablet day #2 thru #5 No Action allopurinol 100 mg tablet 100 mg PO DAILY Rx Instructions: TAKE ONE TABLET BY MOUTH EVERY DAY FOR GOUT lisinopril 10 mg tablet 10 mg PO DAILY Rx Instructions: TAKE ONE TABLET BY MOUTH EVERY DAY FOR HYPERTENSION Referrals Follow up/Referrals: Kathleen Keith APRN [Primary Care Provider] - See instructions Activity Restrictions/Add. Instructions Additional Instructions/Restrictions: Start antibiotic patient to take as ordered for a full length of time even if you feel better. Sinus infections do not get better overnight. It may take 2-3 days to notice much improvement so be sure to use conservative measures as discussed for symptoms. Flonase 1 spray each nostril daily to help with nasal congestion, sinus and ear pressure/information Increase fluids Humidifier/vaporizer as needed Tylenol and ibuprofen as needed for fever or pain. If symptoms do not improve or get worse return or be seen in the ER Follow-up with primary care this week Clinical Impressions Clinical Impression: Sinusitis Qualifiers: Sinusitis location: maxillary Chronicity: acute Recurrence: non-recurrent Qualified Code(s): J01.00 - Acute maxillary sinusitis, unspecified Instructions Patient Instructions: DI for Sinusitis Discharge ED Provider: Sagar ([facility])Kathleen [facility] General Stated complaint: congestion, sinus pressure Mode of Arrival: Ambulatory Source of Information: Patient Limitations: No Limitations Time Seen by Provider: 05/14/23 12:22 Description of Symptoms (Recalled from Triage Doc. by RN): PATIENT C/O CONGESTION, HEADACHE, AND SINUS DRAINAGE X 3 WEEKS HEENT Symptoms (Recalled from RN notes): Yes Resp Symptoms (Recalled from RN notes): No Skin Symptoms (Recalled from RN notes): No MS Symptoms (Recalled from RN notes): No Functional Status (Recalled from RN notes): WNL History of Present Illness Provider Complaint: 57 yr old male presents for sinus pressure,sinus tenderness, green drainage, and franco. pt states symptoms have been going on for 3 weeks but last 2 days the drainage has changed to green/yellow Related Data Home Medications Medication Instructions Recorded Confirmed allopurinol 100 mg tablet 100 mg PO DAILY GOUT 05/04/22 05/14/23 lisinopril 10 mg tablet 10 mg PO DAILY Hypertension 05/04/22 05/14/23 Previous Rx's Medication Instructions Recorded azithromycin 250 mg tablet 250 mg PO DIRECTED #6 tabs 05/14/23 Allergies Allergy/AdvReac Type Severity Reaction Status Date / Time No Known Allergies Allergy Verified 02/18/23 17:39 Worker's Comp Is this a Worker's Comp case?: No [facility] Disclaimer: The information contained in this section may have been updated after the patient was seen, as this information can be updated by other users. 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 , [employer]) Gout Hypertension Social History , [employer]) Smoking Status: Unknown if ever smoked alcohol intake: current substance use type: denies use current occupational status: employed Travel in the last 8 weeks: None housing: house current occupation: [email or web address] caffeine: Yes ROS Obtained: Yes All systems reviewed & no additional complaints except as documented Constitutional Constitutional: Reports system reviewed and no additional complaints, except as documented, Reports as per HPI and Reports headache(s) Eyes Eyes: Reports system reviewed and no additional complaints, except as documented ENT Ears, Nose, Mouth, and Throat: Reports system reviewed and no additional complaints, except as documented, Reports as per HPI, Reports headache(s), Reports nasal congestion, Reports nasal discharge, Reports sinus pain and Reports sinus pressure Cardiovascular Cardiovascular: Reports system reviewed and no additional complaints, except as documented Respiratory Respiratory: Reports system reviewed and no additional complaints, except as documented Integumentary/Breasts Skin/Breast: Reports system reviewed and no additional complaints, except as documented Neurologic Neurologic: Reports system reviewed and no additional complaints, except as documented, Reports as per HPI and Reports headache(s) Endocrine Endocrine: Reports system reviewed and no additional complaints, except as documented Hematologic/Lymphatic Henatologic/Lymphatic: Reports system reviewed and no additional complaints, except as documented Physical Exam General General appearance: alert Head Head exam: atraumatic Eye Eye exam: Present normal appearance and PERRL ENT ENT exam: Present mucous membranes moist and TM's normal bilaterally Expanded ENT Exam Nose exam: Present sinus tenderness Respiratory Respiratory exam: Present normal lung sounds bilaterally Cardiovascular Cardiovascular exam: Present regular rate and normal rhythm Neurological Exam Neurological exam: Present alert and oriented X3 Skin Skin exam: Present warm and intact Medical Decision Making Medical Records Medical records reviewed: Yes I reviewed the patient's medical records. Timo Inquiry Pt receiving controlled substance: No Timo was queried for this patient: No Vital Signs: 05/14/23 11:55 Temperature 98.2 F Temperature Source Oral Pulse Rate [Left Brachial] 60 Respiratory Rate 22 Blood Pressure [Left Arm] 172/99 H Blood Pressure Mean [Left Arm] 123 Blood Pressure Source [Left Arm] Automatic Cuff Blood Pressure Position [Left Arm] Sitting 02 Sat by Pulse Oximetry 98 Oxygen Delivery Method Room Air Lab Data Lab results reviewed: Yes I reviewed the patient's lab results.
[2023-05-14] MEDS: cefTRIAXone 1GM VIAL 1 GM IM (12:26)
[2023-05-14] MEDS: LIDOCAINE 1% 5ML PF VIAL IM (12:26)
[2023-05-14] MEDS: DEXAMETHASONE 4MG/ML 1ML VIAL 4 MG IM (12:26)
[2023-05-14 12:38] VITALS: BP 172/99; PULSE 60; RESP 22; TEMP 36.8; O2SAT 98
== END 2023-05-14 12:40 | disposition home or self-care (01) ==
PROVIDERS: Emergency Provider Nurse Practitioner Family; PCP Nurse Practitioner Family
DX: J01.00 Acute maxillary sinusitis, unspecified (principal); R51.9 Headache, unspecified; R09.81 Nasal congestion; I10 Essential (primary) hypertension
CPT/HCPCS: 96372; 99212; 99214; G0463; J0696

== ENCOUNTER 2023-05-20 09:17 | Emergency (ER) | payer BC, SELFPAY ==
[2023-05-20 09:45] VITALS: BP 157/99; PULSE 63; RESP 22; TEMP 36.6; O2SAT 100; BMI 41.1
--- NOTE | 2023-05-20 09:45 | ED_ITS ---
Discharge Plan Disposition Patient Disposition: Home, Self-Care Condition: Good Prescriptions Prescriptions: New prednisone 10 mg tablet 10 mg PO DIRECTED 9 Days Qty: 21 0RF Rx Instructions: Take 4 tablets daily for 3 days, then take 2 tablets daily for 3 days, then take 1 tablet daily for 3 days, then stop. benzonatate [benzonatate] 100 mg capsule 100 mg PO TIDP PRN (Reason: Cough) Qty: 30 0RF amoxicillin-pot clavulanate 875-125 mg Tablet 1 tab PO Q12H Qty: 20 0RF guaifenesin [Mucinex] 600 mg tablet extended release 12hr 600 - 1,200 mg PO BIDP PRN (Reason: Congestion) Qty: 30 0RF No Action allopurinol 100 mg tablet 100 mg PO DAILY Rx Instructions: TAKE ONE TABLET BY MOUTH EVERY DAY FOR GOUT lisinopril 10 mg tablet 10 mg PO DAILY Rx Instructions: TAKE ONE TABLET BY MOUTH EVERY DAY FOR HYPERTENSION azithromycin [azithromycin] 250 mg tablet 250 mg PO DIRECTED Qty: 6 0RF Rx Instructions: Take two (2) tablets on day #1, then one (1) tablet day #2 thru #5 Referrals Follow up/Referrals: Kathleen Keith APRN [Primary Care Provider] - See instructions Activity Restrictions/Add. Instructions Additional Instructions/Restrictions: Drink plenty of fluids. Take tylenol or ibuprofen for pain or fever. Take the medications as directed. Follow up with your regular doctor. GO TO THE ER FOR ANY WORSENING SYMPTOMS Don't start the oral steroids (prednisone) until tomorrow since you had the steroid shot here today. Clinical Impressions Clinical Impression: Sinusitis Instructions Patient Instructions: Sinusitis, DI for Sinusitis, Prednisone, Amoxicillin and Clavulanic Acid, Ceftriaxone Injection, Dexamethasone Injection Discharge ED Provider: Ross Washburn [facility] General Stated complaint: scratchy, drainage, headache Time Seen by Provider: 05/20/23 09:44 History of Present Illness Provider Complaint: He states that he has had sinus congestion and ear pain for the past 3 weeks. He came here last week and was given 2 shots and prescribed azithromycin for this. He states that he felt better after the shots but he did not take the oral medications because he thought he was getting better. Related Data Home Medications Medication Instructions Recorded Confirmed allopurinol 100 mg tablet 100 mg PO DAILY GOUT 05/04/22 05/20/23 lisinopril 10 mg tablet 10 mg PO DAILY Hypertension 05/04/22 05/20/23 Previous Rx's Medication Instructions Recorded azithromycin 250 mg tablet 250 mg PO DIRECTED #6 tabs 05/14/23 amoxicillin 875 mg-potassium 1 tab PO Q12H #20 tabs 05/20/23 clavulanate 125 mg tablet benzonatate 100 mg capsule 100 mg PO TIDP PRN Cough #30 caps 05/20/23 guaifenesin 600 mg tablet, 600 - 1,200 mg PO BIDP PRN 05/20/23 extended release 12 hr (Mucinex) Congestion #30 tabs prednisone 10 mg tablet 10 mg PO DIRECTED 9 days #21 05/20/23 tabs Allergies Allergy/AdvReac Type Severity Reaction Status Date / Time No Known Allergies Allergy Verified 02/18/23 17:39 [facility] Disclaimer: The information contained in this section may have been updated after the patient was seen, as this information can be updated by other users. 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) Smoking Status: Unknown if ever smoked alcohol intake: current substance use type: denies use current occupational status: employed Travel in the last 8 weeks: None housing: house current occupation: [employer] caffeine: Yes ROS Obtained: Yes All systems reviewed & no additional complaints except as documented Constitutional Constitutional: Reports poor appetite Eyes Eyes: Reports system reviewed and no additional complaints, except as documented ENT Ears, Nose, Mouth, and Throat: Reports as per HPI Cardiovascular Cardiovascular: Reports system reviewed and no additional complaints, except as documented and Denies chest pain Respiratory Respiratory: Denies shortness of breath, Denies chest congestion, Reports cough, Denies stridor and Denies wheezing Gastrointestinal Gastrointestingal: Reports system reviewed and no additional complaints, except as documented; Denies abdominal pain, diarrhea or vomiting Musculoskeletal Musculoskeletal: Reports system reviewed and no additional complaints, except as documented and Denies arthralgias Integumentary/Breasts Skin/Breast: Reports system reviewed and no additional complaints, except as documented and Denies rash Neurologic Neurologic: Denies paresthesias Allergic/Immunologic Allergic/Immunologic: Denies wheezing Physical Exam General General appearance: alert and in no apparent distress Eye Eye exam: Present normal appearance, PERRL and EOMI ENT ENT exam: Present mucous membranes moist and normal external ear exam Expanded ENT Exam External ear exam: Present normal external inspection TM/Canal exam: Bilateral TM: erythema and bulging Nose exam: Absent sinus tenderness Nasal speculum exam: Bilateral: normal Mouth exam: Present normal external inspection; Absent drooling Teeth exam: Present normal inspection Throat exam: Present tonsillar erythema and tonsillomegaly Neck Neck exam: Present normal inspection, full ROM and trachea midline; Absent tenderness, lymphadenopathy or thyromegaly Chest Chest inspection: Present normal inspection and symmetric chest wall rise; Absent tenderness or rash Respiratory Respiratory exam: Present normal lung sounds bilaterally; Absent respiratory distress, wheezes, stridor or accessory muscle use Cardiovascular Cardiovascular exam: Present regular rate, normal rhythm and normal heart sounds Abdominal Exam Abdominal exam: Present soft; Absent distention, tenderness, guarding, rebound or rigidity Extremities Exam Extremities exam: Present normal inspection, full ROM and normal capillary refill; Absent tenderness or calf tenderness Back Exam Back exam: Present normal inspection and full ROM; Absent tenderness Neurological Exam Neurological exam: Present alert and oriented X3 Psychiatric Psychiatric exam: Present normal affect and normal mood Skin Skin exam: Present warm, dry, intact and normal color Lymphatic Lymphatic Findings: no adenopathy Medical Decision Making Medical Records Medical records reviewed: No I reviewed the patient's medical records. Timo Inquiry Pt receiving controlled substance: No Lab Data Lab results reviewed: Yes I reviewed the patient's lab results.
[2023-05-20] MEDS: cefTRIAXone 1GM VIAL 1 GM IM (10:30)
[2023-05-20] MEDS: LIDOCAINE 1% 5ML PF VIAL IM (10:30)
[2023-05-20] MEDS: DEXAMETHASONE 4MG/ML 1ML VIAL 8 MG IM (10:30)
[2023-05-20 10:33] VITALS: BP 157/99; PULSE 63; RESP 22; TEMP 36.6; O2SAT 100
== END 2023-05-20 10:42 | disposition home or self-care (01) ==
PROVIDERS: Emergency Provider Nurse Practitioner Family; PCP Nurse Practitioner Family
DX: J01.90 Acute sinusitis, unspecified (principal); R51.9 Headache, unspecified; H92.03 Otalgia, bilateral; I10 Essential (primary) hypertension
CPT/HCPCS: 96372; 99212; 99214; G0463; J0696

== ENCOUNTER 2023-06-24 08:49 | Emergency (ER) | payer BC, SELFPAY ==
[2023-06-24 09:06] VITALS: BP 168/104; PULSE 81; RESP 20; TEMP 36.7; O2SAT 97; BMI 41.1
--- NOTE | 2023-06-24 09:06 | EXP.UTC ---
Discharge Plan Disposition Patient Disposition: Home, Self-Care Condition: Good Prescriptions Prescriptions: New methylprednisolone 4 mg Tablets,Dose Pack 4 mg PO DIRECTED 6 Days Qty: 21 0RF Rx Instructions: Take 1 pack as directed for 6 days fluticasone propionate 50 mcg/actuation spray,suspension 2 spray intranasal DAILY 30 Days Qty: 120 5RF levofloxacin 500 mg tablet 500 mg PO DAILY Qty: 7 0RF No Action allopurinol 100 mg tablet 100 mg PO DAILY Rx Instructions: TAKE ONE TABLET BY MOUTH EVERY DAY FOR GOUT lisinopril 10 mg tablet 10 mg PO DAILY Rx Instructions: TAKE ONE TABLET BY MOUTH EVERY DAY FOR HYPERTENSION azithromycin [azithromycin] 250 mg tablet 250 mg PO DIRECTED Qty: 6 0RF Rx Instructions: Take two (2) tablets on day #1, then one (1) tablet day #2 thru #5 prednisone 10 mg tablet 10 mg PO DIRECTED 9 Days Qty: 21 0RF Rx Instructions: Take 4 tablets daily for 3 days, then take 2 tablets daily for 3 days, then take 1 tablet daily for 3 days, then stop. benzonatate [benzonatate] 100 mg capsule 100 mg PO TIDP PRN (Reason: Cough) Qty: 30 0RF amoxicillin-pot clavulanate 875-125 mg Tablet 1 tab PO Q12H Qty: 20 0RF guaifenesin [Mucinex] 600 mg tablet extended release 12hr 600 - 1,200 mg PO BIDP PRN (Reason: Congestion) Qty: 30 0RF Referrals Follow up/Referrals: Kathleen Keith APRN [Primary Care Provider] - See instructions Activity Restrictions/Add. Instructions Additional Instructions/Restrictions: Drink plenty of fluids. Take tylenol or ibuprofen for pain or fever. Take the medications as directed. Follow up with your regular doctor. GO TO THE ER FOR ANY WORSENING SYMPTOMS Don't start the oral steroids until tomorrow since you had the steroid shot here today. Clinical Impressions Clinical Impression: Sinusitis Instructions Patient Instructions: Sinusitis, DI for Sinusitis Discharge ED Provider: Ross Washburn [facility] [place] HPI General Stated complaint: sinus pressure and pain Time Seen by Provider: 06/24/23 09:06 History of Present Illness Provider Complaint: He states that for the past 1 week he has had worsening sinus congestion and pressure. He has a history of chronic sinusitis. Related Data Home Medications Medication Instructions Recorded Confirmed allopurinol 100 mg tablet 100 mg PO DAILY GOUT 05/04/22 05/20/23 lisinopril 10 mg tablet 10 mg PO DAILY Hypertension 05/04/22 05/20/23 Previous Rx's Medication Instructions Recorded azithromycin 250 mg tablet 250 mg PO DIRECTED #6 tabs 05/14/23 amoxicillin 875 mg-potassium 1 tab PO Q12H #20 tabs 05/20/23 clavulanate 125 mg tablet benzonatate 100 mg capsule 100 mg PO TIDP PRN Cough #30 caps 05/20/23 guaifenesin 600 mg tablet, 600 - 1,200 mg (1 - 2 x 600 mg) PO 05/20/23 extended release 12 hr (Mucinex) BIDP PRN Congestion #30 tabs prednisone 10 mg tablet 10 mg PO DIRECTED 9 days #21 05/20/23 tabs fluticasone propionate 50 2 spray intranasal DAILY 30 days 06/24/23 mcg/actuation nasal #120 ea spray,suspension levofloxacin 500 mg tablet 500 mg PO DAILY #7 tabs 06/24/23 methylprednisolone 4 mg tablets in 4 mg PO DIRECTED 6 days #21 tabs 06/24/23 a dose pack Allergies Allergy/AdvReac Type Severity Reaction Status Date / Time No Known Allergies Allergy Verified 02/18/23 17:39 [facility] Disclaimer: The information contained in this section may have been updated after the patient was seen, as this information can be updated by other users. 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) Smoking Status: Unknown if ever smoked alcohol intake: current substance use type: denies use current occupational status: employed Travel in the last 8 weeks: None housing: house current occupation: [employer] caffeine: Yes ROS Obtained: Yes All systems reviewed & no additional complaints except as documented Constitutional Constitutional: Reports poor appetite Eyes Eyes: Reports system reviewed and no additional complaints, except as documented ENT Ears, Nose, Mouth, and Throat: Reports as per HPI Cardiovascular Cardiovascular: Reports system reviewed and no additional complaints, except as documented and Denies chest pain Respiratory Respiratory: Denies shortness of breath, Denies chest congestion, Reports cough, Denies stridor and Denies wheezing Gastrointestinal Gastrointestingal: Reports system reviewed and no additional complaints, except as documented; Denies abdominal pain, diarrhea or vomiting Musculoskeletal Musculoskeletal: Reports system reviewed and no additional complaints, except as documented and Denies arthralgias Integumentary/Breasts Skin/Breast: Reports system reviewed and no additional complaints, except as documented and Denies rash Neurologic Neurologic: Denies paresthesias Allergic/Immunologic Allergic/Immunologic: Denies wheezing Physical Exam General General appearance: alert and in no apparent distress Eye Eye exam: Present normal appearance, PERRL and EOMI ENT ENT exam: Present mucous membranes moist and normal external ear exam Expanded ENT Exam External ear exam: Present normal external inspection TM/Canal exam: Bilateral TM: erythema and bulging Nose exam: Absent sinus tenderness Nasal speculum exam: Bilateral: normal Mouth exam: Present normal external inspection; Absent drooling Teeth exam: Present normal inspection Throat exam: Present tonsillar erythema and tonsillomegaly Neck Neck exam: Present normal inspection, full ROM and trachea midline; Absent tenderness, lymphadenopathy or thyromegaly Chest Chest inspection: Present normal inspection and symmetric chest wall rise; Absent tenderness or rash Respiratory Respiratory exam: Present normal lung sounds bilaterally; Absent respiratory distress, wheezes, stridor or accessory muscle use Cardiovascular Cardiovascular exam: Present regular rate, normal rhythm and normal heart sounds Abdominal Exam Abdominal exam: Present soft; Absent distention, tenderness, guarding, rebound or rigidity Extremities Exam Extremities exam: Present normal inspection, full ROM and normal capillary refill; Absent tenderness or calf tenderness Back Exam Back exam: Present normal inspection and full ROM; Absent tenderness Neurological Exam Neurological exam: Present alert and oriented X3 Psychiatric Psychiatric exam: Present normal affect and normal mood Skin Skin exam: Present warm, dry, intact and normal color Lymphatic Lymphatic Findings: no adenopathy Medical Decision Making Medical Records Medical records reviewed: No I reviewed the patient's medical records. Timo Inquiry Pt receiving controlled substance: No
[2023-06-24] MEDS: LIDOCAINE 1% 5ML PF VIAL IM (09:40)
[2023-06-24] MEDS: METHYLPREDNISOLONE SOD SUCC 125MG VIAL 125 MG IM (09:40)
[2023-06-24] MEDS: cefTRIAXone 1GM VIAL 1 GM IM (09:40)
[2023-06-24 09:43] VITALS: BP 168/104; PULSE 81; RESP 20; TEMP 36.7; O2SAT 97
== END 2023-06-24 10:00 | disposition home or self-care (01) ==
PROVIDERS: Emergency Provider Nurse Practitioner Family; PCP Nurse Practitioner Family
DX: J01.90 Acute sinusitis, unspecified (principal); R09.81 Nasal congestion; I10 Essential (primary) hypertension
CPT/HCPCS: 96372; 99212; 99214; G0463; J0696

== ENCOUNTER 2023-07-17 10:00 | Emergency (ER) | payer BC, SELFPAY ==
[2023-07-17 10:20] VITALS: BP 174/96; PULSE 68; RESP 19; TEMP 36.8; O2SAT 99; BMI 41.8
--- NOTE | 2023-07-17 10:44 | ED_ITS ---
Discharge Plan Disposition Patient Disposition: Home, Self-Care Condition: Good Prescriptions Prescriptions: New doxycycline hyclate 100 mg tablet 100 mg PO BID Qty: 20 0RF prednisone 10 mg tablet 10 mg PO BID 5 Days Qty: 10 0RF fluticasone propionate [Flonase Allergy Relief] 50 mcg/actuation spray,suspension 2 spray intranasal DAILY Qty: 16 0RF Rx Instructions: administer into each nostril No Action allopurinol 100 mg tablet 100 mg PO DAILY Rx Instructions: TAKE ONE TABLET BY MOUTH EVERY DAY FOR GOUT lisinopril 10 mg tablet 10 mg PO DAILY Rx Instructions: TAKE ONE TABLET BY MOUTH EVERY DAY FOR HYPERTENSION Referrals Follow up/Referrals: Kathleen Keith APRN [Primary Care Provider] - See instructions Activity Restrictions/Add. Instructions Additional Instructions/Restrictions: *Monitor Temp, Over the counter Motrin or Tylenol as directed/as needed Tylenol every 4 hours and Motrin every 6 hours (as long as your family doctor has told you that you can take it) for fever or pain. and straight to ER if unable to lower temp less than 101.0 after medication given *Warm salt water gargles may help to soothe the throat *Throat Lozenges? *Warm fluids like tea with honey may help to soothe the throat? *Sleep elevated *Humidifier/Vaporizer Your throat swab was sent for culture. Those results are typically sent to your primary care. Be sure to follow up in 2-3 days with your family doctor/primary care physician if no improvement so they can review those result and treat if necessary. If you don?t have a primary care doctor, I recommend you get one but in the mean time, you will have to return to a walk in clinic Follow up IMMEDIATELY for new or worsening symptoms or no Noticeable improvement over the next 48-72 hours. 911 for difficulty breathing or swallowing Clinical Impressions Clinical Impression: Sinusitis Instructions Patient Instructions: Sinusitis, DI for Sinusitis Discharge ED Provider: Zainab Bautista [facility] [place] HPI General Stated complaint: head congestion, MINOR, runny nose Mode of Arrival: Ambulatory Source of Information: Patient Limitations: No Limitations Time Seen by Provider: 07/17/23 10:44 Description of Symptoms (Recalled from Triage Doc. by RN): Pt's symptoms are sinus pressure, drainage, and cough. HEENT Symptoms (Recalled from RN notes): Yes Resp Symptoms (Recalled from RN notes): No Skin Symptoms (Recalled from RN notes): No MS Symptoms (Recalled from RN notes): No Functional Status (Recalled from RN notes): n/a History of Present Illness Provider Complaint: Patient states that he has been having alot of sinus pain and pressure with drainage in the back of his throat and cough States he has been having issues with sinusitis States he was dx around the first of the month was given steriod shot and prescribed some antibiotics but he never picked them up because he was feeling better after the steriod shot but now it is back and worse Related Data Home Medications Medication Instructions Recorded Confirmed allopurinol 100 mg tablet 100 mg PO DAILY GOUT 05/04/22 07/17/23 lisinopril 10 mg tablet 10 mg PO DAILY Hypertension 05/04/22 07/17/23 Previous Rx's Medication Instructions Recorded doxycycline hyclate 100 mg tablet 100 mg PO BID #20 tabs 07/17/23 fluticasone propionate 50 2 spray intranasal DAILY #16 grams 07/17/23 mcg/actuation nasal spray,suspension (Flonase Allergy Relief) prednisone 10 mg tablet 10 mg PO BID 5 days #10 tabs 07/17/23 Allergies Allergy/AdvReac Type Severity Reaction Status Date / Time No Known Allergies Allergy Verified 07/17/23 10:38 Worker's Comp Is this a Worker's Comp case?: No [facility] Disclaimer: The information contained in this section may have been updated after the patient was seen, as this information can be updated by other users. 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 Hypertension Social History Smoking Status: Unknown if ever smoked alcohol intake: current alcohol intake frequency: a few times a week substance use type: denies use current occupational status: employed Travel in the last 8 weeks: None housing: house current occupation: [employer] caffeine: Yes ROS Obtained: Yes All systems reviewed & no additional complaints except as documented and Yes Systems reviewed as appropriate & no additional complaints except as documented Constitutional Constitutional: Reports system reviewed and no additional complaints, except as documented and Reports as per HPI ENT Ears, Nose, Mouth, and Throat: Reports system reviewed and no additional complaints, except as documented, Reports as per HPI, Reports sinus pain and Reports sinus pressure Cardiovascular Cardiovascular: Reports system reviewed and no additional complaints, except as documented and Reports as per HPI Respiratory Respiratory: Reports system reviewed and no additional complaints, except as documented, Reports as per HPI and Reports cough Physical Exam General General appearance: alert and in no apparent distress ENT ENT exam: Present mucous membranes moist Expanded ENT Exam Nose exam: Present sinus tenderness Throat exam: Present other (PND noted) Respiratory Respiratory exam: Present normal lung sounds bilaterally; Absent respiratory distress or wheezes Cardiovascular Cardiovascular exam: Present regular rate, normal rhythm and normal heart sounds Neurological Exam Neurological exam: Present alert, oriented X3 and normal gait Medical Decision Making Timo Inquiry Pt receiving controlled substance: No Timo was queried for this patient: No Vital Signs: 07/17/23 10:20 Temperature 98.2 F Temperature Source Oral Pulse Rate [Right Radial] 68 Respiratory Rate 19 Blood Pressure [Right Arm] 174/96 H Blood Pressure Mean [Right Arm] 122 Blood Pressure Source [Right Arm] Automatic Cuff Blood Pressure Position [Right Arm] Sitting 02 Sat by Pulse Oximetry 99 Oxygen Delivery Method Room Air
[2023-07-17] MEDS: METHYLPREDNISOLONE SOD SUCC 125MG VIAL 125 MG IM (10:50)
[2023-07-17 11:06] VITALS: BP 174/96; PULSE 68; RESP 19; TEMP 36.8; O2SAT 99
== END 2023-07-17 11:06 | disposition home or self-care (01) ==
PROVIDERS: Emergency Provider Nurse Practitioner; PCP Nurse Practitioner Family
DX: J01.90 Acute sinusitis, unspecified (principal); R05.9 Cough, unspecified; R09.82 Postnasal drip; R09.81 Nasal congestion; I10 Essential (primary) hypertension
CPT/HCPCS: 96372; 99212; 99214; G0463

== ENCOUNTER 2023-08-06 09:28 | Emergency (ER) | payer BC, SELFPAY ==
[2023-08-06 09:40] VITALS: BP 170/95; PULSE 63; RESP 18; TEMP 36.8; O2SAT 97; BMI 41.7
--- NOTE | 2023-08-06 09:40 | EXP.UTC ---
Discharge Plan Disposition Patient Disposition: Home, Self-Care Condition: Good Prescriptions Prescriptions: New prednisone 10 mg tablet 10 mg PO DIRECTED 9 Days Qty: 21 0RF Rx Instructions: Take 4 tablets daily for 3 days, then take 2 tablets daily for 3 days, then take 1 tablet daily for 3 days, then stop. amoxicillin 875 mg tablet 875 mg PO Q12H Qty: 20 0RF No Action allopurinol 100 mg tablet 100 mg PO DAILY Rx Instructions: TAKE ONE TABLET BY MOUTH EVERY DAY FOR GOUT lisinopril 10 mg tablet 10 mg PO DAILY Rx Instructions: TAKE ONE TABLET BY MOUTH EVERY DAY FOR HYPERTENSION fluticasone propionate [Flonase Allergy Relief] 50 mcg/actuation spray,suspension 2 spray intranasal DAILY Qty: 16 0RF Rx Instructions: administer into each nostril Referrals Follow up/Referrals: Kathleen Keith APRN [Primary Care Provider] - See instructions Activity Restrictions/Add. Instructions Additional Instructions/Restrictions: Drink plenty of fluids. Take tylenol or ibuprofen for pain or fever. Take the medications as directed. Follow up with your regular doctor. GO TO THE ER FOR ANY WORSENING SYMPTOMS Don't start the oral steroids until tomorrow since you had the steroid shot here today. Clinical Impressions Clinical Impression: Sinusitis Instructions Patient Instructions: Sinusitis, DI for Sinusitis Discharge ED Provider: Ross Wash[place] [facility] [place] General Stated complaint: sinus pressure, draininage, cough, congestion Time Seen by Provider: 08/06/23 09:39 Related Data Home Medications Medication Instructions Recorded Confirmed allopurinol 100 mg tablet 100 mg PO DAILY GOUT 05/04/22 08/06/23 lisinopril 10 mg tablet 10 mg PO DAILY Hypertension 05/04/22 08/06/23 Previous Rx's Medication Instructions Recorded fluticasone propionate 50 2 spray intranasal DAILY #16 grams 07/17/23 mcg/actuation nasal spray,suspension (Flonase Allergy Relief) amoxicillin 875 mg tablet 875 mg PO Q12H #20 tabs 08/06/23 prednisone 10 mg tablet 10 mg PO DIRECTED 9 days #21 08/06/23 tabs Allergies Allergy/AdvReac Type Severity Reaction Status Date / Time No Known Allergies Allergy Verified 08/06/23 09:50 [facility] Disclaimer: The information contained in this section may have been updated after the patient was seen, as this information can be updated by other users. 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 ROS Obtained: Yes All systems reviewed & no additional complaints except as documented Constitutional Constitutional: Reports poor appetite Eyes Eyes: Reports system reviewed and no additional complaints, except as documented ENT Ears, Nose, Mouth, and Throat: Reports as per HPI Cardiovascular Cardiovascular: Reports system reviewed and no additional complaints, except as documented and Denies chest pain Respiratory Respiratory: Denies shortness of breath, Denies chest congestion, Reports cough, Denies stridor and Denies wheezing Gastrointestinal Gastrointestingal: Reports system reviewed and no additional complaints, except as documented; Denies abdominal pain, diarrhea or vomiting Musculoskeletal Musculoskeletal: Reports system reviewed and no additional complaints, except as documented and Denies arthralgias Integumentary/Breasts Skin/Breast: Reports system reviewed and no additional complaints, except as documented and Denies rash Neurologic Neurologic: Denies paresthesias Allergic/Immunologic Allergic/Immunologic: Denies wheezing Physical Exam General General appearance: alert and in no apparent distress Eye Eye exam: Present normal appearance, PERRL and EOMI ENT ENT exam: Present mucous membranes moist and normal external ear exam Expanded ENT Exam External ear exam: Present normal external inspection TM/Canal exam: Bilateral TM: erythema and bulging Nose exam: Absent sinus tenderness Nasal speculum exam: Bilateral: normal Mouth exam: Present normal external inspection; Absent drooling Teeth exam: Present normal inspection Throat exam: Present tonsillar erythema and tonsillomegaly Neck Neck exam: Present normal inspection, full ROM and trachea midline; Absent tenderness, lymphadenopathy or thyromegaly Chest Chest inspection: Present normal inspection and symmetric chest wall rise; Absent tenderness or rash Respiratory Respiratory exam: Present normal lung sounds bilaterally; Absent respiratory distress, wheezes, stridor or accessory muscle use Cardiovascular Cardiovascular exam: Present regular rate, normal rhythm and normal heart sounds Abdominal Exam Abdominal exam: Present soft; Absent distention, tenderness, guarding, rebound or rigidity Extremities Exam Extremities exam: Present normal inspection, full ROM and normal capillary refill; Absent tenderness or calf tenderness Back Exam Back exam: Present normal inspection and full ROM; Absent tenderness Neurological Exam Neurological exam: Present alert and oriented X3 Psychiatric Psychiatric exam: Present normal affect and normal mood Skin Skin exam: Present warm, dry, intact and normal color Lymphatic Lymphatic Findings: no adenopathy Medical Decision Making Medical Records Medical records reviewed: No I reviewed the patient's medical records. Timo Inquiry Pt receiving controlled substance: No Lab Data Lab results reviewed: Yes I reviewed the patient's lab results.
[2023-08-06] MEDS: cefTRIAXone 1GM VIAL 1 GM IM (10:25)
[2023-08-06] MEDS: LIDOCAINE 1% 5ML PF VIAL IM (10:25)
[2023-08-06] MEDS: DEXAMETHASONE 4MG/ML 1ML VIAL 8 MG IM (10:25)
[2023-08-06 10:46] VITALS: BP 170/95; PULSE 63; RESP 18; TEMP 36.8; O2SAT 97
== END 2023-08-06 10:46 | disposition home or self-care (01) ==
PROVIDERS: Emergency Provider Nurse Practitioner Family; PCP Nurse Practitioner Family
DX: J01.90 Acute sinusitis, unspecified (principal); R05.9 Cough, unspecified; R09.81 Nasal congestion
CPT/HCPCS: 96372; 99212; 99214; G0463; J0696

== ENCOUNTER 2023-09-10 08:01 | Emergency (ER) | payer BC, SELFPAY ==
[2023-09-10 08:01] VITALS: BP 166/94; PULSE 72; RESP 18; TEMP 36.7; O2SAT 99; BMI 43.5
--- NOTE | 2023-09-10 08:28 | EXP.UTC ---
Discharge Plan Disposition Patient Disposition: Home, Self-Care Condition: Good Prescriptions Prescriptions: New montelukast [Singulair] 10 mg tablet 10 mg PO DAILY Qty: 90 0RF doxycycline hyclate 100 mg tablet 100 mg PO BID 10 Days Qty: 20 0RF Stahist AD 25-60 mg tablet 1 tab PO .6-8 hours MDD 3 tabs daily PRN (Reason: sinus symptoms) Qty: 30 0RF No Action allopurinol 100 mg tablet 100 mg PO DAILY Rx Instructions: TAKE ONE TABLET BY MOUTH EVERY DAY FOR GOUT lisinopril 10 mg tablet 10 mg PO DAILY Rx Instructions: TAKE ONE TABLET BY MOUTH EVERY DAY FOR HYPERTENSION fluticasone propionate [Flonase Allergy Relief] 50 mcg/actuation spray,suspension 2 spray intranasal DAILY Qty: 16 0RF Rx Instructions: administer into each nostril prednisone 10 mg tablet 10 mg PO DIRECTED 9 Days Qty: 21 0RF Rx Instructions: Take 4 tablets daily for 3 days, then take 2 tablets daily for 3 days, then take 1 tablet daily for 3 days, then stop. amoxicillin 875 mg tablet 875 mg PO Q12H Qty: 20 0RF Referrals Follow up/Referrals: David Rdz MD [Physician] - See instructions Kathleen Keith APRN [Primary Care Provider] - See instructions Activity Restrictions/Add. Instructions Additional Instructions/Restrictions: Monitor blood pressure while taking Stahist. If BP 140/90 or greater stop taking medication. Take blood pressure medication once you get home. Follow up with ENT for chronic Sinusitis. Follow up with primary care provider. Clinical Impressions Clinical Impression: Sinusitis Instructions Patient Instructions: DI for Sinusitis Discharge ED Provider: Sylvia Kurtz [facility] General Stated complaint: congestion, sinus pressure Mode of Arrival: Ambulatory Source of Information: Patient Limitations: No Limitations Time Seen by Provider: 09/10/23 08:10 Description of Symptoms (Recalled from Triage Doc. by RN): PT REPORTS HEAD CONGESTION, EYES WATERING, RUNNY NOSE AND CONGESTION X 1 WEEK HEENT Symptoms (Recalled from RN notes): Yes Resp Symptoms (Recalled from RN notes): Yes Skin Symptoms (Recalled from RN notes): No MS Symptoms (Recalled from RN notes): No Functional Status (Recalled from RN notes): NA History of Present Illness Provider Complaint: Pt reports that he has had chronic issues with his sinuses He states that he previously had surgery to fix his septum. He states that for the last 6 months he has been to the [facility] 1-2 a month for antibiotics and steroids. He states that today he has yellow drainage in the morning that clears through the day. He has nasal congestion and a cough as well. His symptoms started a week ago. Related Data Home Medications Medication Instructions Recorded Confirmed allopurinol 100 mg tablet 100 mg PO DAILY GOUT 05/04/22 08/06/23 lisinopril 10 mg tablet 10 mg PO DAILY Hypertension 05/04/22 08/06/23 Previous Rx's Medication Instructions Recorded fluticasone propionate 50 2 spray intranasal DAILY #16 grams 07/17/23 mcg/actuation nasal spray,suspension (Flonase Allergy Relief) amoxicillin 875 mg tablet 875 mg PO Q12H #20 tabs 08/06/23 prednisone 10 mg tablet 10 mg PO DIRECTED 9 days #21 08/06/23 tabs chlorcyclizine-pseudoephedrine 25 1 tab PO .6-8 hours PRN sinus 09/10/23 mg-60 mg tablet (Stahist AD) symptoms #30 tabs doxycycline hyclate 100 mg tablet 100 mg PO BID 10 days #20 tabs 09/10/23 montelukast 10 mg tablet 10 mg PO DAILY #90 tabs 09/10/23 (Singulair) Allergies Allergy/AdvReac Type Severity Reaction Status Date / Time No Known Allergies Allergy Verified 08/06/23 09:50 Worker's Comp Is this a Worker's Comp case?: No [facility] Disclaimer: The information contained in this section may have been updated after the patient was seen, as this information can be updated by other users. 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 ROS Obtained: Yes All systems reviewed & no additional complaints except as documented Constitutional Constitutional: Reports system reviewed and no additional complaints, except as documented and Reports malaise Eyes Eyes: Reports system reviewed and no additional complaints, except as documented ENT Ears, Nose, Mouth, and Throat: Reports system reviewed and no additional complaints, except as documented, Reports nasal congestion, Reports nasal discharge and Reports sinus pressure Cardiovascular Cardiovascular: Reports system reviewed and no additional complaints, except as documented Respiratory Respiratory: Reports system reviewed and no additional complaints, except as documented and Reports non-productive cough Gastrointestinal Gastrointestingal: Reports system reviewed and no additional complaints, except as documented Genitourinary Male Genitourinary: Reports system reviewed and no additional complaints, except as documented Musculoskeletal Musculoskeletal: Reports system reviewed and no additional complaints, except as documented Integumentary/Breasts Skin/Breast: Reports system reviewed and no additional complaints, except as documented Neurologic Neurologic: Reports system reviewed and no additional complaints, except as documented Endocrine Endocrine: Reports system reviewed and no additional complaints, except as documented Hematologic/Lymphatic Henatologic/Lymphatic: Reports system reviewed and no additional complaints, except as documented Allergic/Immunologic Allergic/Immunologic: Reports system reviewed and no additional complaints, except as documented Physical Exam General General appearance: alert and in no apparent distress Head Head exam: atraumatic and normocephalic Eye Eye exam: Present normal appearance ENT ENT exam: Present mucous membranes moist Expanded ENT Exam External ear exam: Present normal external inspection TM/Canal exam: Left TM: cerumen impaction Nasal speculum exam: Bilateral: other (clear discharge with edematous mucosa) Mouth exam: Present normal external inspection Teeth exam: Present normal inspection Throat exam: Present normal inspection Neck Neck exam: Present normal inspection; Absent lymphadenopathy Chest Chest inspection: Present normal inspection and symmetric chest wall rise Respiratory Respiratory exam: Present normal lung sounds bilaterally Cardiovascular Cardiovascular exam: Present regular rate and normal rhythm Abdominal Exam Abdominal exam: Present soft and normal bowel sounds Extremities Exam Extremities exam: Present normal inspection Back Exam Back exam: Present normal inspection Neurological Exam Neurological exam: Present alert and oriented X3 Psychiatric Psychiatric exam: Present normal affect and normal mood Skin Skin exam: Present warm, dry and intact Lymphatic Lymphatic Findings: no adenopathy Medical Decision Making Timo Inquiry Pt receiving controlled substance: No Vital Signs: 09/10/23 08:01 Temperature 98.1 F Temperature Source Oral Pulse Rate [Radial] 72 Respiratory Rate 18 Blood Pressure [Left Arm] 166/94 H Blood Pressure Mean [Left Arm] 118 Blood Pressure Source [Left Arm] Automatic Cuff Blood Pressure Position [Left Arm] Sitting 02 Sat by Pulse Oximetry 99 Oxygen Delivery Method Room Air Pt did not take his blood pressure medication yet this morning.
[2023-09-10 08:40] VITALS: BP 166/98; PULSE 72; RESP 18; TEMP 36.7; O2SAT 99
== END 2023-09-10 08:40 | disposition home or self-care (01) ==
PROVIDERS: Emergency Provider Nurse Practitioner Family; PCP Nurse Practitioner Family
DX: J01.90 Acute sinusitis, unspecified (principal); R05.9 Cough, unspecified; R09.81 Nasal congestion
CPT/HCPCS: 99212; 99214; G0463

== ENCOUNTER 2023-09-17 08:04 | Emergency (ER) | payer BC, SELFPAY ==
[2023-09-17 08:15] VITALS: BP 178/95; PULSE 72; RESP 18; TEMP 36.9; O2SAT 96; BMI 42.3
--- NOTE | 2023-09-17 08:29 | EXP.UTC ---
Discharge Plan Disposition Patient Disposition: Home, Self-Care Condition: Good Prescriptions Prescriptions: New methylprednisolone 4 mg Tablets,Dose Pack 4 mg PO DIRECTED 6 Days Qty: 21 0RF Rx Instructions: Take 1 pack as directed for 6 days amoxicillin-pot clavulanate 875-125 mg Tablet 1 tab PO Q12H Qty: 20 0RF guaifenesin [Mucinex] 600 mg tablet extended release 12hr 600 - 1,200 mg PO BIDP PRN (Reason: Congestion) Qty: 30 0RF No Action allopurinol 100 mg tablet 100 mg PO DAILY Rx Instructions: TAKE ONE TABLET BY MOUTH EVERY DAY FOR GOUT lisinopril 10 mg tablet 10 mg PO DAILY Rx Instructions: TAKE ONE TABLET BY MOUTH EVERY DAY FOR HYPERTENSION fluticasone propionate [Flonase Allergy Relief] 50 mcg/actuation spray,suspension 2 spray intranasal DAILY Qty: 16 0RF Rx Instructions: administer into each nostril montelukast [Singulair] 10 mg tablet 10 mg PO DAILY Qty: 90 0RF doxycycline hyclate 100 mg tablet 100 mg PO BID 10 Days Qty: 20 0RF Stahist AD 25-60 mg tablet 1 tab PO .6-8 hours MDD 3 tabs daily PRN (Reason: sinus symptoms) Qty: 30 0RF Referrals Follow up/Referrals: Kathleen Keith APRN [Primary Care Provider] - See instructions Activity Restrictions/Add. Instructions Additional Instructions/Restrictions: Drink plenty of fluids. Take tylenol or ibuprofen for pain or fever. Take the medications as directed. Follow up with your regular doctor. GO TO THE ER FOR ANY WORSENING SYMPTOMS Don't start the oral steroids (medrol dose pack) until tomorrow since you had the shot her . Only take the Stahist sparingly. It has pseudoephedrine in it and your blood pressure is too high already. Stop the doxycycline that you are already on, and start the new antibiotics (amoxicilin/clavulanate). Clinical Impressions Clinical Impression: Sinusitis Instructions Patient Instructions: Sinusitis, DI for Sinusitis, Methylprednisolone, Ceftriaxone Injection, Dexamethasone Injection Discharge ED Provider: Ross Washburn [facility] [place] HPI General Stated complaint: congestion cough minor soa Mode of Arrival: Ambulatory Source of Information: Patient Limitations: No Limitations Time Seen by Provider: 09/17/23 08:28 Description of Symptoms (Recalled from Triage Doc. by RN): Pt's symptoms are sinus pressure, congestion, cough, and MINOR. HEENT Symptoms (Recalled from RN notes): Yes Resp Symptoms (Recalled from RN notes): No Skin Symptoms (Recalled from RN notes): No MS Symptoms (Recalled from RN notes): No Functional Status (Recalled from RN notes): n/a Related Data Home Medications Medication Instructions Recorded Confirmed allopurinol 100 mg tablet 100 mg PO DAILY GOUT 05/04/22 09/17/23 lisinopril 10 mg tablet 10 mg PO DAILY Hypertension 05/04/22 09/17/23 Previous Rx's Medication Instructions Recorded fluticasone propionate 50 2 spray intranasal DAILY #16 grams 07/17/23 mcg/actuation nasal spray,suspension (Flonase Allergy Relief) chlorcyclizine-pseudoephedrine 25 1 tab PO .6-8 hours PRN sinus 09/10/23 mg-60 mg tablet (Stahist AD) symptoms #30 tabs doxycycline hyclate 100 mg tablet 100 mg PO BID 10 days #20 tabs 09/10/23 montelukast 10 mg tablet 10 mg PO DAILY #90 tabs 09/10/23 (Singulair) amoxicillin 875 mg-potassium 1 tab PO Q12H #20 tabs 09/17/23 clavulanate 125 mg tablet guaifenesin 600 mg tablet, 600 - 1,200 mg (1 - 2 x 600 mg) PO 09/17/23 extended release 12 hr (Mucinex) BIDP PRN Congestion #30 tabs methylprednisolone 4 mg tablets in 4 mg PO DIRECTED 6 days #21 tabs 09/17/23 a dose pack Allergies Allergy/AdvReac Type Severity Reaction Status Date / Time No Known Allergies Allergy Verified 08/06/23 09:50 Worker's Comp Is this a Worker's Comp case?: No [facility] Disclaimer: The information contained in this section may have been updated after the patient was seen, as this information can be updated by other users. 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 ROS Obtained: Yes All systems reviewed & no additional complaints except as documented Constitutional Constitutional: Reports poor appetite Eyes Eyes: Reports system reviewed and no additional complaints, except as documented ENT Ears, Nose, Mouth, and Throat: Reports as per HPI Cardiovascular Cardiovascular: Reports system reviewed and no additional complaints, except as documented and Denies chest pain Respiratory Respiratory: Denies shortness of breath, Denies chest congestion, Reports cough, Denies stridor and Denies wheezing Gastrointestinal Gastrointestingal: Reports system reviewed and no additional complaints, except as documented; Denies abdominal pain, diarrhea or vomiting Musculoskeletal Musculoskeletal: Reports system reviewed and no additional complaints, except as documented and Denies arthralgias Integumentary/Breasts Skin/Breast: Reports system reviewed and no additional complaints, except as documented and Denies rash Neurologic Neurologic: Denies paresthesias Allergic/Immunologic Allergic/Immunologic: Denies wheezing Physical Exam General General appearance: alert and in no apparent distress Eye Eye exam: Present normal appearance, PERRL and EOMI ENT ENT exam: Present mucous membranes moist and normal external ear exam Expanded ENT Exam External ear exam: Present normal external inspection TM/Canal exam: Bilateral TM: erythema and bulging Nose exam: Absent sinus tenderness Nasal speculum exam: Bilateral: normal Mouth exam: Present normal external inspection; Absent drooling Teeth exam: Present normal inspection Throat exam: Present tonsillar erythema and tonsillomegaly Neck Neck exam: Present normal inspection, full ROM and trachea midline; Absent tenderness, lymphadenopathy or thyromegaly Chest Chest inspection: Present normal inspection and symmetric chest wall rise; Absent tenderness or rash Respiratory Respiratory exam: Present normal lung sounds bilaterally; Absent respiratory distress, wheezes, stridor or accessory muscle use Cardiovascular Cardiovascular exam: Present regular rate, normal rhythm and normal heart sounds Abdominal Exam Abdominal exam: Present soft; Absent distention, tenderness, guarding, rebound or rigidity Extremities Exam Extremities exam: Present normal inspection, full ROM and normal capillary refill; Absent tenderness or calf tenderness Back Exam Back exam: Present normal inspection and full ROM; Absent tenderness Neurological Exam Neurological exam: Present alert and oriented X3 Psychiatric Psychiatric exam: Present normal affect and normal mood Skin Skin exam: Present warm, dry, intact and normal color Lymphatic Lymphatic Findings: no adenopathy Medical Decision Making Medical Records Medical records reviewed: No I reviewed the patient's medical records. Timo Inquiry Pt receiving controlled substance: No Vital Signs: 09/17/23 08:15 Temperature 98.5 F Temperature Source Oral Pulse Rate [Right Radial] 72 Respiratory Rate 18 Blood Pressure [Right Arm] 178/95 H Blood Pressure Mean [Right Arm] 122 Blood Pressure Source [Right Arm] Automatic Cuff Blood Pressure Position [Right Arm] Sitting 02 Sat by Pulse Oximetry 96 Oxygen Delivery Method Room Air
[2023-09-17] MEDS: cefTRIAXone 1GM VIAL 1 GM IM (08:51)
[2023-09-17] MEDS: DEXAMETHASONE 4MG/ML 1ML VIAL 8 MG IM (08:52)
[2023-09-17] MEDS: LIDOCAINE 1% 5ML PF VIAL IM (08:52)
[2023-09-17 09:18] VITALS: BP 178/95; PULSE 72; RESP 18; TEMP 36.9; O2SAT 96
== END 2023-09-17 09:18 | disposition home or self-care (01) ==
PROVIDERS: Emergency Provider Nurse Practitioner Family; PCP Nurse Practitioner Family
DX: J01.90 Acute sinusitis, unspecified (principal); R05.9 Cough, unspecified; R51.9 Headache, unspecified; R09.81 Nasal congestion
CPT/HCPCS: 96372; 99212; 99214; G0463; J0696; J1100

== ENCOUNTER 2023-11-08 08:05 | Emergency (ER) | payer BC, SELFPAY ==
[2023-11-08 08:15] VITALS: BP 199/106; PULSE 66; RESP 22; TEMP 36.6; O2SAT 99; BMI 41.4
--- NOTE | 2023-11-08 08:56 | EXP.UTC ---
Discharge Plan Disposition Patient Disposition: Home, Self-Care Condition: Good Prescriptions Prescriptions: New methylprednisolone 4 mg Tablets,Dose Pack 4 mg PO DIRECTED 6 Days Qty: 21 0RF Rx Instructions: Take 1 pack as directed for 6 days guaifenesin [Mucinex] 600 mg tablet extended release 12hr 600 - 1,200 mg PO BIDP PRN (Reason: Congestion) Qty: 30 0RF benzonatate 100 mg capsule 100 mg PO TIDP PRN (Reason: Cough) Qty: 30 0RF amoxicillin-pot clavulanate 875-125 mg Tablet 1 tab PO Q12H Qty: 20 0RF No Action allopurinol 100 mg tablet 100 mg PO DAILY Rx Instructions: TAKE ONE TABLET BY MOUTH EVERY DAY FOR GOUT lisinopril 10 mg tablet 10 mg PO DAILY Rx Instructions: TAKE ONE TABLET BY MOUTH EVERY DAY FOR HYPERTENSION Referrals Follow up/Referrals: Kathleen Keith APRN [Primary Care Provider] - See instructions Activity Restrictions/Add. Instructions Additional Instructions/Restrictions: Drink plenty of fluids. Take tylenol or ibuprofen for pain or fever. Take the medications as directed. Follow up with your regular doctor. GO TO THE ER FOR ANY WORSENING SYMPTOMS Clinical Impressions Clinical Impression: Sinusitis Instructions Patient Instructions: Sinusitis, DI for Sinusitis Print Language Print Language: Icelandic Discharge ED Provider: Ross Washburn [facility] [place], [place] General Stated complaint: head congestion Mode of Arrival: Ambulatory Source of Information: Patient Limitations: No Limitations Time Seen by Provider: 11/08/23 08:45 Description of Symptoms (Recalled from Triage Doc. by RN): PATIENT C/O SINUS CONGESTION X 2 WEEKS HEENT Symptoms (Recalled from RN notes): Yes Resp Symptoms (Recalled from RN notes): No Skin Symptoms (Recalled from RN notes): No MS Symptoms (Recalled from RN notes): No Functional Status (Recalled from RN notes): WNL Related Data Home Medications ?Medication ?Instructions ?Recorded ?Confirmed allopurinol 100 mg tablet 100 mg PO DAILY GOUT 05/04/22 11/08/23 lisinopril 10 mg tablet 10 mg PO DAILY Hypertension 05/04/22 11/08/23 Previous Rx's ?Medication ?Instructions ?Recorded amoxicillin 875 mg-potassium 1 tab PO Q12H #20 tabs 11/08/23 clavulanate 125 mg tablet benzonatate 100 mg capsule 100 mg PO TIDP PRN Cough #30 caps 11/08/23 guaifenesin 600 mg tablet, 600 - 1,200 mg (1 - 2 x 600 mg) PO 11/08/23 extended release 12 hr (Mucinex) BIDP PRN Congestion #30 tabs methylprednisolone 4 mg tablets in 4 mg PO DIRECTED 6 days #21 tabs 11/08/23 a dose pack Allergies Allergy/AdvReac Type Severity Reaction Status Date / Time No Known Allergies Allergy Verified 08/06/23 09:50 Worker's Comp Is this a Worker's Comp case?: No [facility] Disclaimer: The information contained in this section may have been updated after the patient was seen, as this information can be updated by other users. 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 Social History Smoking Status: Unknown if ever smoked alcohol intake: current alcohol intake frequency: a few times a week substance use type: denies use current occupational status: employed Travel in the last 8 weeks: None housing: house current occupation: [employer] caffeine: Yes ROS Obtained: Yes All systems reviewed & no additional complaints except as documented Constitutional Constitutional: Reports poor appetite Eyes Eyes: Reports system reviewed and no additional complaints, except as documented ENT Ears, Nose, Mouth, and Throat: Reports as per HPI Cardiovascular Cardiovascular: Reports system reviewed and no additional complaints, except as documented and Denies chest pain Respiratory Respiratory: Denies shortness of breath, Denies chest congestion, Reports cough, Denies stridor and Denies wheezing Gastrointestinal Gastrointestingal: Reports system reviewed and no additional complaints, except as documented; Denies abdominal pain, diarrhea or vomiting Musculoskeletal Musculoskeletal: Reports system reviewed and no additional complaints, except as documented and Denies arthralgias Integumentary/Breasts Skin/Breast: Reports system reviewed and no additional complaints, except as documented and Denies rash Neurologic Neurologic: Denies paresthesias Allergic/Immunologic Allergic/Immunologic: Denies wheezing Physical Exam General General appearance: alert and in no apparent distress Eye Eye exam: Present normal appearance, PERRL and EOMI ENT ENT exam: Present mucous membranes moist and normal external ear exam Expanded ENT Exam External ear exam: Present normal external inspection TM/Canal exam: Bilateral TM: erythema and bulging Nose exam: Absent sinus tenderness Nasal speculum exam: Bilateral: normal Mouth exam: Present normal external inspection; Absent drooling Teeth exam: Present normal inspection Throat exam: Present tonsillar erythema and tonsillomegaly Neck Neck exam: Present normal inspection, full ROM and trachea midline; Absent tenderness, lymphadenopathy or thyromegaly Chest Chest inspection: Present normal inspection and symmetric chest wall rise; Absent tenderness or rash Respiratory Respiratory exam: Present normal lung sounds bilaterally; Absent respiratory distress, wheezes, stridor or accessory muscle use Cardiovascular Cardiovascular exam: Present regular rate, normal rhythm and normal heart sounds Abdominal Exam Abdominal exam: Present soft; Absent distention, tenderness, guarding, rebound or rigidity Extremities Exam Extremities exam: Present normal inspection, full ROM and normal capillary refill; Absent tenderness or calf tenderness Back Exam Back exam: Present normal inspection and full ROM; Absent tenderness Neurological Exam Neurological exam: Present alert and oriented X3 Psychiatric Psychiatric exam: Present normal affect and normal mood Skin Skin exam: Present warm, dry, intact and normal color Lymphatic Lymphatic Findings: no adenopathy Medical Decision Making Medical Records Medical records reviewed: No I reviewed the patient's medical records. Timo Inquiry Pt receiving controlled substance: No Vital Signs: 11/08/23 08:15 Temperature 97.9 F Temperature Source Oral Pulse Rate [Left Brachial] 66 Respiratory Rate 22 Blood Pressure [Left Arm] 199/106 H Blood Pressure Mean [Left Arm] 137 Blood Pressure Source [Left Arm] Automatic Cuff Blood Pressure Position [Left Arm] Sitting 02 Sat by Pulse Oximetry 99 Oxygen Delivery Method Room Air Orders (Tests/Meds): ED MEDICATIONS Generic Name Dose Route Start Last Admin Trade Name [place] PRN Reason Stop Dose Admin Ceftriaxone Sodium 1 gm 11/08/23 08:51 Ceftriaxone 1gm Vial IM 11/08/23 08:52 ONCE ONE Dexamethasone Sodium Phosphate 8 mg 11/08/23 08:51 Dexamethasone 4mg/Ml 1ml Vial IM 11/08/23 08:52 ONCE ONE Lidocaine HCl 0 ml 11/08/23 08:51 Lidocaine 1% 5ml Pf Vial IM 11/08/23 08:52 ONCE ONE
[2023-11-08] MEDS: DEXAMETHASONE 4MG/ML 1ML VIAL 8 MG IM (08:57)
[2023-11-08] MEDS: cefTRIAXone 1GM VIAL 1 GM IM (08:57)
[2023-11-08] MEDS: LIDOCAINE 1% 5ML PF VIAL IM (08:57)
[2023-11-08 09:02] VITALS: BP 199/106; PULSE 66; RESP 22; TEMP 36.6; O2SAT 99
== END 2023-11-08 09:04 | disposition home or self-care (01) ==
PROVIDERS: Emergency Provider Nurse Practitioner Family; PCP Nurse Practitioner Family
DX: J01.90 Acute sinusitis, unspecified (principal); R09.81 Nasal congestion
CPT/HCPCS: 96372; 99212; 99214; G0463; J0696; J1100

== ENCOUNTER 2023-12-02 08:20 | Emergency (ER) | payer BC, SELFPAY ==
[2023-12-02 08:46] VITALS: BP 162/102; PULSE 66; RESP 20; TEMP 36.9; O2SAT 98; BMI 41.3
--- NOTE | 2023-12-02 08:55 | ED_ITS ---
Discharge Plan Disposition Patient Disposition: Home, Self-Care Condition: Good Prescriptions Prescriptions: New doxycycline hyclate 100 mg capsule 100 mg PO BID Qty: 20 0RF fluticasone propionate [Flonase Allergy Relief] 50 mcg/actuation spray,suspension 2 spray intranasal DAILY Qty: 16 0RF Rx Instructions: administer into each nostril daily prednisone 10 mg tablet 10 mg PO BID 5 Days Qty: 10 0RF No Action allopurinol 100 mg tablet 100 mg PO DAILY Rx Instructions: TAKE ONE TABLET BY MOUTH EVERY DAY FOR GOUT lisinopril 10 mg tablet 10 mg PO DAILY Rx Instructions: TAKE ONE TABLET BY MOUTH EVERY DAY FOR HYPERTENSION Referrals Follow up/Referrals: Kathleen Keith APRN [Primary Care Provider] - See instructions Activity Restrictions/Add. Instructions Additional Instructions/Restrictions: Start oral antibiotics and Prednisone tomorrow Make sure to drink plenty of fluids Follow up with your Family Doctor if no improvement or any worsening of symptoms Straight to ER if any life threatening symptoms Clinical Impressions Clinical Impression: Sinusitis Qualifiers: Sinusitis location: unspecified location Chronicity: unspecified Qualified Code(s): J32.9 - Chronic sinusitis, unspecified Instructions Patient Instructions: Sinusitis, DI for Sinusitis Print Language Print Language: French Discharge ED Provider: Zainab Bautista [facility] General Stated complaint: draininage, congestion, headache Mode of Arrival: Ambulatory Source of Information: Patient Time Seen by Provider: 12/02/23 08:57 Description of Symptoms (Recalled from Triage Doc. by RN): SINUS CONGESTION HEENT Symptoms (Recalled from RN notes): Yes (SINUS CONGESTION) Resp Symptoms (Recalled from RN notes): No Skin Symptoms (Recalled from RN notes): No MS Symptoms (Recalled from RN notes): No Functional Status (Recalled from RN notes): WNL History of Present Illness Provider Complaint: Patient states that he gets sinus infections States for the last couple of days he has had worsening sinus pain and pressure and pressure behind his eyes States today he wasnt feeling any better so he came in to get checked Related Data Home Medications ?Medication ?Instructions ?Recorded ?Confirmed allopurinol 100 mg tablet 100 mg PO DAILY GOUT 05/04/22 12/02/23 lisinopril 10 mg tablet 10 mg PO DAILY Hypertension 05/04/22 12/02/23 Previous Rx's ?Medication ?Instructions ?Recorded doxycycline hyclate 100 mg capsule 100 mg PO BID #20 caps 12/02/23 fluticasone propionate 50 2 spray intranasal DAILY #16 grams 12/02/23 mcg/actuation nasal spray,suspension (Flonase Allergy Relief) prednisone 10 mg tablet 10 mg PO BID 5 days #10 tabs 12/02/23 Allergies Allergy/AdvReac Type Severity Reaction Status Date / Time No Known Allergies Allergy Verified 08/06/23 09:50 Worker's Comp Is this a Worker's Comp case?: No [facility] Disclaimer: The information contained in this section may have been updated after the patient was seen, as this information can be updated by other users. 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 Hypertension Social History Smoking Status: Unknown if ever smoked alcohol intake: current alcohol intake frequency: a few times a week substance use type: denies use current occupational status: employed Travel in the last 8 weeks: None housing: house current occupation: [employer] caffeine: Yes ROS Obtained: Yes All systems reviewed & no additional complaints except as documented and Yes Systems reviewed as appropriate & no additional complaints except as documented Constitutional Constitutional: Reports system reviewed and no additional complaints, except as documented, Reports as per HPI and Reports headache(s) ENT Ears, Nose, Mouth, and Throat: Reports system reviewed and no additional complaints, except as documented, Reports as per HPI, Reports headache(s), Reports sinus pain and Reports sinus pressure Cardiovascular Cardiovascular: Reports system reviewed and no additional complaints, except as documented and Reports as per HPI Respiratory Respiratory: Reports system reviewed and no additional complaints, except as documented and Reports as per HPI Gastrointestinal Gastrointestingal: Reports system reviewed and no additional complaints, except as documented and as per HPI Neurologic Neurologic: Reports headache(s) Physical Exam General General appearance: alert and in no apparent distress ENT ENT exam: Present mucous membranes moist Expanded ENT Exam Nose exam: Present sinus tenderness Throat exam: Present other (PND noted) Respiratory Respiratory exam: Present normal lung sounds bilaterally; Absent respiratory distress or wheezes Cardiovascular Cardiovascular exam: Present regular rate, normal rhythm and normal heart sounds Neurological Exam Neurological exam: Present alert, oriented X3 and normal gait Medical Decision Making Timo Inquiry Pt receiving controlled substance: No Timo was queried for this patient: No Vital Signs: 12/02/23 08:46 Temperature 98.4 F Temperature Source Oral Pulse Rate [Left Brachial] 66 Respiratory Rate 20 Blood Pressure [Left Arm] 162/102 H Blood Pressure Mean [Left Arm] 122 02 Sat by Pulse Oximetry 98
[2023-12-02] MEDS: cefTRIAXone 1GM VIAL 1 GM IM (09:14)
[2023-12-02] MEDS: METHYLPREDNISOLONE SOD SUCC 125MG VIAL 125 MG IM (09:17)
[2023-12-02] MEDS: LIDOCAINE 1% 5ML PF VIAL IM (09:18)
[2023-12-02 09:37] VITALS: BP 162/102; PULSE 66; RESP 20; TEMP 36.9
== END 2023-12-02 09:15 | disposition home or self-care (01) ==
PROVIDERS: Emergency Provider Nurse Practitioner; PCP Nurse Practitioner Family
DX: J01.90 Acute sinusitis, unspecified (principal); R51.9 Headache, unspecified
CPT/HCPCS: 96372; 99212; 99214; G0463; J0696; J2919

== ENCOUNTER 2024-01-22 07:59 | Emergency (ER) | payer BC, SELFPAY ==
--- NOTE | 2024-01-22 08:13 | ED_ITS ---
Discharge Plan Disposition Patient Disposition: Home, Self-Care Condition: Good Prescriptions Prescriptions: New guaifenesin [Mucinex] 600 mg tablet extended release 12hr 600 - 1,200 mg PO BIDP PRN (Reason: Congestion) Qty: 30 0RF benzonatate 100 mg capsule 100 mg PO TIDP PRN (Reason: Cough) Qty: 30 0RF methylprednisolone 4 mg Tablets,Dose Pack 4 mg PO DIRECTED 6 Days Qty: 21 0RF Rx Instructions: Take 1 pack as directed for 6 days amoxicillin-pot clavulanate 875-125 mg Tablet 1 tab PO Q12H Qty: 20 0RF betamethasone dipropionate 0.05 % cream 1 applic topical BID 7 Days Qty: 15 0RF No Action allopurinol 100 mg tablet 100 mg PO DAILY Rx Instructions: TAKE ONE TABLET BY MOUTH EVERY DAY FOR GOUT lisinopril 10 mg tablet 10 mg PO DAILY Rx Instructions: TAKE ONE TABLET BY MOUTH EVERY DAY FOR HYPERTENSION Referrals Follow up/Referrals: Kathleen Keith APRN [Primary Care Provider] - See instructions Activity Restrictions/Add. Instructions Additional Instructions/Restrictions: Drink plenty of fluids. Take tylenol or ibuprofen for pain or fever. Take the medications as directed. Follow up with your regular doctor. GO TO THE ER FOR ANY WORSENING SYMPTOMS Don't start the oral steroids (medrol dose pack) until tomorrow since you had the shot here Clinical Impressions Clinical Impression: Sinusitis Qualifiers: Sinusitis location: unspecified location Chronicity: unspecified Qualified Code(s): J32.9 - Chronic sinusitis, unspecified Instructions Patient Instructions: Sinusitis, DI for Sinusitis Print Language Print Language: Mongolian Discharge ED Provider: Ross Washburn [facility] General Stated complaint: headache, drainage, sinus congest Time Seen by Provider: 01/22/24 08:13 Related Data Home Medications ?Medication ?Instructions ?Recorded ?Confirmed allopurinol 100 mg tablet 100 mg PO DAILY GOUT 05/04/22 01/22/24 lisinopril 10 mg tablet 10 mg PO DAILY Hypertension 05/04/22 01/22/24 Previous Rx's ?Medication ?Instructions ?Recorded amoxicillin 875 mg-potassium 1 tab PO Q12H #20 tabs 01/22/24 clavulanate 125 mg tablet benzonatate 100 mg capsule 100 mg PO TIDP PRN Cough #30 caps 01/22/24 betamethasone dipropionate 0.05 % 1 applic topical BID skin 01/22/24 topical cream irritation 7 days #15 grams guaifenesin 600 mg tablet, 600 - 1,200 mg (1 - 2 x 600 mg) PO 01/22/24 extended release 12 hr (Mucinex) BIDP PRN Congestion #30 tabs methylprednisolone 4 mg tablets in 4 mg PO DIRECTED 6 days #21 tabs 01/22/24 a dose pack Allergies Allergy/AdvReac Type Severity Reaction Status Date / Time No Known Allergies Allergy Verified 08/06/23 09:50 [facility] Disclaimer: The information contained in this section may have been updated after the patient was seen, as this information can be updated by other users. 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 Hypertension Social History Smoking Status: Unknown if ever smoked alcohol intake: current alcohol intake frequency: a few times a week substance use type: denies use current occupational status: employed Travel in the last 8 weeks: None housing: house current occupation: [employer] caffeine: Yes ROS Obtained: Yes All systems reviewed & no additional complaints except as documented Constitutional Constitutional: Reports poor appetite Eyes Eyes: Reports system reviewed and no additional complaints, except as documented ENT Ears, Nose, Mouth, and Throat: Reports as per HPI Cardiovascular Cardiovascular: Reports system reviewed and no additional complaints, except as documented and Denies chest pain Respiratory Respiratory: Denies shortness of breath, Denies chest congestion, Reports cough, Denies stridor and Denies wheezing Gastrointestinal Gastrointestingal: Reports system reviewed and no additional complaints, except as documented; Denies abdominal pain, diarrhea or vomiting Musculoskeletal Musculoskeletal: Reports system reviewed and no additional complaints, except as documented and Denies arthralgias Integumentary/Breasts Skin/Breast: Reports system reviewed and no additional complaints, except as documented and Denies rash Neurologic Neurologic: Denies paresthesias Allergic/Immunologic Allergic/Immunologic: Denies wheezing Physical Exam General General appearance: alert and in no apparent distress Eye Eye exam: Present normal appearance, PERRL and EOMI ENT ENT exam: Present mucous membranes moist and normal external ear exam Expanded ENT Exam External ear exam: Present normal external inspection TM/Canal exam: Bilateral TM: erythema and bulging Nose exam: Absent sinus tenderness Nasal speculum exam: Bilateral: normal Mouth exam: Present normal external inspection; Absent drooling Teeth exam: Present normal inspection Throat exam: Present tonsillar erythema and tonsillomegaly Neck Neck exam: Present normal inspection, full ROM and trachea midline; Absent tenderness, lymphadenopathy or thyromegaly Chest Chest inspection: Present normal inspection and symmetric chest wall rise; Absent tenderness or rash Respiratory Respiratory exam: Present normal lung sounds bilaterally; Absent respiratory distress, wheezes, stridor or accessory muscle use Cardiovascular Cardiovascular exam: Present regular rate, normal rhythm and normal heart sounds Abdominal Exam Abdominal exam: Present soft; Absent distention, tenderness, guarding, rebound or rigidity Extremities Exam Extremities exam: Present normal inspection, full ROM and normal capillary refill; Absent tenderness or calf tenderness Back Exam Back exam: Present normal inspection and full ROM; Absent tenderness Neurological Exam Neurological exam: Present alert and oriented X3 Psychiatric Psychiatric exam: Present normal affect and normal mood Skin Skin exam: Present warm, dry, intact and normal color Lymphatic Lymphatic Findings: no adenopathy Medical Decision Making Medical Records Medical records reviewed: No I reviewed the patient's medical records. Screening: Per USPSTF and CDC recommendations, given the prevalence of disease in our r egion, it is our hospital?s policy to screen for HIV and viral Hepatitis for all patients aged 18 and over and those with ongoing risk factors. Timo Inquiry Pt receiving controlled substance: No
[2024-01-22 08:15] VITALS: BP 188/96; PULSE 69; RESP 20; TEMP 37.1; O2SAT 96; BMI 44.0
[2024-01-22] MEDS: cefTRIAXone 1GM VIAL 1 GM IM (08:28)
[2024-01-22] MEDS: LIDOCAINE 1% 5ML PF VIAL IM (08:29)
[2024-01-22] MEDS: DEXAMETHASONE 4MG/ML 1ML VIAL 10 MG IM (08:29)
[2024-01-22 08:58] VITALS: BP 188/96; PULSE 69; RESP 20; TEMP 37.1
== END 2024-01-22 09:00 | disposition home or self-care (01) ==
PROVIDERS: Emergency Provider Nurse Practitioner Family; PCP Nurse Practitioner Family
DX: J32.9 Chronic sinusitis, unspecified (principal)
CPT/HCPCS: 96372; 99213; G0381; J0696; J1100

== ENCOUNTER 2024-02-23 10:59 | Emergency (ER) | payer BC, SELFPAY ==
[2024-02-23 11:10] VITALS: BP 177/103; PULSE 77; RESP 19; TEMP 36.9; O2SAT 97; BMI 43.3
--- NOTE | 2024-02-23 11:18 | EXP.UTC ---
Discharge Plan Disposition Patient Disposition: Home, Self-Care Condition: Good Prescriptions Prescriptions: No Action allopurinol 100 mg tablet 100 mg PO DAILY Rx Instructions: TAKE ONE TABLET BY MOUTH EVERY DAY FOR GOUT lisinopril 10 mg tablet 10 mg PO DAILY Rx Instructions: TAKE ONE TABLET BY MOUTH EVERY DAY FOR HYPERTENSION Referrals Follow up/Referrals: Kathleen Keith APRN [Primary Care Provider] - See instructions Activity Restrictions/Add. Instructions Additional Instructions/Restrictions: *Monitor Temp, Over the counter Motrin or Tylenol as directed/as needed Tylenol every 4 hours and Motrin every 6 hours (as long as your family doctor has told you that you can take it) for fever or pain. and straight to ER if unable to lower temp less than 101.0 after medication given *Warm salt water gargles may help to soothe the throat *Throat Lozenges? *Warm fluids like tea with honey may help to soothe the throat? *Sleep elevated *Humidifier/Vaporizer Your throat swab was sent for culture. Those results are typically sent to your primary care. Be sure to follow up in 2-3 days with your family doctor/primary care physician if no improvement so they can review those result and treat if necessary. If you don?t have a primary care doctor, I recommend you get one but in the mean time, you will have to return to a walk in clinic Follow up IMMEDIATELY for new or worsening symptoms or no Noticeable improvement over the next 48-72 hours. 911 for difficulty breathing or swallowing Clinical Impressions Clinical Impression: Viral upper respiratory infection Stand Alone Forms Stand Alone Forms: Work/School Release Instructions Patient Instructions: DI for Fever (Symptom) -- Adult, Sore Throat Print Language Print Language: Belarusian Discharge ED Provider: Zainab Bautista [facility] General Stated complaint: congestion sore throat fever Mode of Arrival: Ambulatory Source of Information: Patient Limitations: No Limitations Time Seen by Provider: 02/23/24 11:19 Description of Symptoms (Recalled from Triage Doc. by RN): PATIENT C/O SORE THROAT, HEADACHE, AND SINUS CONGESTION THAT STARTED YESTERDAY MORNING HEENT Symptoms (Recalled from RN notes): Yes Resp Symptoms (Recalled from RN notes): No Skin Symptoms (Recalled from RN notes): No MS Symptoms (Recalled from RN notes): No Functional Status (Recalled from RN notes): WNL History of Present Illness Provider Complaint: Patient states that he started feeling bad yesterday States that he has been having fever, chills, bodyaches, sore throat and over all not feeling well States that he was worried about having the flu so he came in to get checked Related Data Home Medications ?Medication ?Instructions ?Recorded ?Confirmed allopurinol 100 mg tablet 100 mg PO DAILY GOUT 05/04/22 02/23/24 lisinopril 10 mg tablet 10 mg PO DAILY Hypertension 05/04/22 02/23/24 Allergies Allergy/AdvReac Type Severity Reaction Status Date / Time No Known Allergies Allergy Verified 08/06/23 09:50 Worker's Comp Is this a Worker's Comp case?: [facility] Disclaimer: The information contained in this section may have been updated after the patient was seen, as this information can be updated by other users. 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 Social History Smoking Status: Unknown if ever smoked alcohol intake: current alcohol intake frequency: a few times a week substance use type: denies use current occupational status: employed Travel in the last 8 weeks: None housing: house current occupation: [employer] caffeine: Yes ROS Obtained: Yes All systems reviewed & no additional complaints except as documented and Yes Systems reviewed as appropriate & no additional complaints except as documented Constitutional Constitutional: Reports system reviewed and no additional complaints, except as documented, Reports as per HPI, Reports body ache, Reports chills, Reports fever(s) and Reports headache(s) ENT Ears, Nose, Mouth, and Throat: Reports system reviewed and no additional complaints, except as documented, Reports as per HPI, Reports headache(s), Reports nasal congestion, Reports nasal discharge and Reports sore throat Cardiovascular Cardiovascular: Reports system reviewed and no additional complaints, except as documented and Reports as per HPI Respiratory Respiratory: Reports system reviewed and no additional complaints, except as documented and Reports as per HPI Gastrointestinal Gastrointestingal: Reports system reviewed and no additional complaints, except as documented and as per HPI Neurologic Neurologic: Reports headache(s) Physical Exam General General appearance: alert and in no apparent distress ENT ENT exam: Present mucous membranes moist Expanded ENT Exam Nose exam: Absent sinus tenderness Throat exam: Present tonsillar erythema; Absent tonsillomegaly or tonsillar exudate Respiratory Respiratory exam: Present normal lung sounds bilaterally; Absent respiratory distress or wheezes Cardiovascular Cardiovascular exam: Present regular rate, normal rhythm and normal heart sounds Abdominal Exam Abdominal exam: Present soft and normal bowel sounds; Absent distention or tenderness Neurological Exam Neurological exam: Present alert, oriented X3 and normal gait Medical Decision Making Medical Records Screening: Per USPSTF and CDC recommendations, given the prevalence of disease in our region, it is our hospital?s policy to screen for HIV and viral Hepatitis for all patients aged 18 and over and those with ongoing risk factors. Timo Inquiry Pt receiving controlled substance: No Timo was queried for this patient: No Vital Signs: 02/23/24 11:10 Temperature 98.4 F Temperature Source Oral Pulse Rate [Left Brachial] 77 Respiratory Rate 19 Blood Pressure [Left Arm] 177/103 H Blood Pressure Mean [Left Arm] 127 Blood Pressure Source [Left Arm] Automatic Cuff Blood Pressure Position [Left Arm] Sitting 02 Sat by Pulse Oximetry 97 Oxygen Delivery Method Room Air Lab Data Lab results reviewed: Yes I reviewed the patient's lab results.
[2024-02-23 11:30] LABS: UTC Influenza A Antigen Negative (Negative)
[2024-02-23 11:31] LABS: UTC Strep Screen (Rapid) Negative (Negative)
[2024-02-23 11:31] LABS: UTC Influenza B Antigen Negative (Negative)
[2024-02-23 11:51] VITALS: BP 177/103; PULSE 77; RESP 19; TEMP 36.9; O2SAT 97
== END 2024-02-23 11:54 | disposition home or self-care (01) ==
PROVIDERS: Emergency Provider Nurse Practitioner; PCP Nurse Practitioner Family
DX: J06.9 Acute upper respiratory infection, unspecified (principal)
CPT/HCPCS: 87635; 87804; 87880; 99213; G0381

== ENCOUNTER 2024-03-16 11:49 | Emergency (ER) | payer BC, SELFPAY ==
[2024-03-16 11:54] VITALS: BP 0/0; PULSE 0; RESP 0; TEMP -17.7; TEMP 0
== END 2024-03-16 11:55 | disposition left against medical advice (07) ==
LOC: UTC 11:51
PROVIDERS: Emergency Provider Nurse Practitioner; PCP Nurse Practitioner Family
DX: Z53.21 Procedure and treatment not carried out due to patient leaving prior to being seen by health care provider (principal)

== ENCOUNTER 2024-03-17 08:18 | Emergency (ER) | payer BC, SELFPAY ==
--- NOTE | 2024-03-17 09:20 | EXP.UTC ---
Discharge Plan Disposition Patient Disposition: Home, Self-Care Condition: Good Prescriptions Prescriptions: New benzonatate 100 mg capsule 100 mg PO TIDP PRN (Reason: Cough) Qty: 30 0RF methylprednisolone 4 mg Tablets,Dose Pack 4 mg PO DIRECTED 6 Days Qty: 21 0RF Rx Instructions: Take 1 pack as directed for 6 days cefdinir 300 mg capsule 300 mg PO BID Qty: 20 0RF No Action allopurinol 100 mg tablet 100 mg PO DAILY Rx Instructions: TAKE ONE TABLET BY MOUTH EVERY DAY FOR GOUT lisinopril 10 mg tablet 10 mg PO DAILY Rx Instructions: TAKE ONE TABLET BY MOUTH EVERY DAY FOR HYPERTENSION Referrals Follow up/Referrals: Kathleen Keith APRN [Primary Care Provider] - See instructions Activity Restrictions/Add. Instructions Additional Instructions/Restrictions: Drink plenty of fluids. Take tylenol or ibuprofen for pain or fever. Take the medications as directed. Follow up with your regular doctor. GO TO THE ER FOR ANY WORSENING SYMPTOMS Clinical Impressions Clinical Impression: Acute bronchitis Sinusitis Qualifiers: Sinusitis location: unspecified location Chronicity: unspecified Qualified Code(s): J32.9 - Chronic sinusitis, unspecified Instructions Patient Instructions: Sinusitis, DI for Sinusitis Print Language Print Language: Icelandic Discharge ED Provider: Ross Washburn [facility] General Stated complaint: sinus pressure/congestion, headache Time Seen by Provider: 03/17/24 09:20 Related Data Home Medications ?Medication ?Instructions ?Recorded ?Confirmed allopurinol 100 mg tablet 100 mg PO DAILY GOUT 05/04/22 03/17/24 lisinopril 10 mg tablet 10 mg PO DAILY Hypertension 05/04/22 03/17/24 Previous Rx's ?Medication ?Instructions ?Recorded benzonatate 100 mg capsule 100 mg PO TIDP PRN Cough #30 caps 03/17/24 cefdinir 300 mg capsule 300 mg PO BID #20 caps 03/17/24 methylprednisolone 4 mg tablets in 4 mg PO DIRECTED 6 days #21 tabs 03/17/24 a dose pack Allergies Allergy/AdvReac Type Severity Reaction Status Date / Time No Known Allergies Allergy Verified 08/06/23 09:50 [facility] Disclaimer: The information contained in this section may have been updated after the patient was seen, as this information can be updated by other users. 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 Hypertension Social History Smoking Status: Unknown if ever smoked alcohol intake: current alcohol intake frequency: a few times a week substance use type: denies use current occupational status: employed Travel in the last 8 weeks: None housing: house current occupation: [employer] caffeine: Yes Have you lived/traveled outside US in past 30 days?: No Contact w/someone who lives/traveled outside US past 30 days?: No Exposure to someone with infectious disease in past 14 days?: No Do you have a fever (greater than 100.4 F or 38 C)?: No Have you tested positive for COVID-19: No Exposed to someone with COVID-19 in past 14 days?: No Do you have a sore throat?: No Do you have a cough?: No Do you have any weakness?: No Do you have any diarrhea?: No Are you experiencing any unusual bleeding?: No Do you have any muscle aches/pain?: No Do you have any abdominal pain?: No Are you experiencing loss of taste or smell?: No ROS Obtained: Yes All systems reviewed & no additional complaints except as documented Constitutional Constitutional: Reports poor appetite Eyes Eyes: Reports system reviewed and no additional complaints, except as documented ENT Ears, Nose, Mouth, and Throat: Reports as per HPI Cardiovascular Cardiovascular: Reports system reviewed and no additional complaints, except as documented and Denies chest pain Respiratory Respiratory: Denies shortness of breath, Denies chest congestion, Reports cough, Denies stridor and Denies wheezing Gastrointestinal Gastrointestingal: Reports system reviewed and no additional complaints, except as documented; Denies abdominal pain, diarrhea or vomiting Musculoskeletal Musculoskeletal: Reports system reviewed and no additional complaints, except as documented and Denies arthralgias Integumentary/Breasts Skin/Breast: Reports system reviewed and no additional complaints, except as documented and Denies rash Neurologic Neurologic: Denies paresthesias Allergic/Immunologic Allergic/Immunologic: Denies wheezing Physical Exam General General appearance: alert and in no apparent distress Eye Eye exam: Present normal appearance, PERRL and EOMI ENT ENT exam: Present mucous membranes moist and normal external ear exam Expanded ENT Exam External ear exam: Present normal external inspection TM/Canal exam: Bilateral TM: erythema and bulging Nose exam: Absent sinus tenderness Nasal speculum exam: Bilateral: normal Mouth exam: Present normal external inspection; Absent drooling Teeth exam: Present normal inspection Throat exam: Present tonsillar erythema and tonsillomegaly Neck Neck exam: Present normal inspection, full ROM and trachea midline; Absent tenderness, lymphadenopathy or thyromegaly Chest Chest inspection: Present normal inspection and symmetric chest wall rise; Absent tenderness or rash Respiratory Respiratory exam: Present normal lung sounds bilaterally; Absent respiratory distress, wheezes, stridor or accessory muscle use Cardiovascular Cardiovascular exam: Present regular rate, normal rhythm and normal heart sounds Abdominal Exam Abdominal exam: Present soft; Absent distention, tenderness, guarding, rebound or rigidity Extremities Exam Extremities exam: Present normal inspection, full ROM and normal capillary refill; Absent tenderness or calf tenderness Back Exam Back exam: Present normal inspection and full ROM; Absent tenderness Neurological Exam Neurological exam: Present alert and oriented X3 Psychiatric Psychiatric exam: Present normal affect and normal mood Skin Skin exam: Present warm, dry, intact and normal color Lymphatic Lymphatic Findings: no adenopathy Medical Decision Making Medical Records Medical records reviewed: No I reviewed the patient's medical records. Screening: Per USPSTF and CDC recommendations, given the prevalence of disease in our region, it is our hospital?s policy to screen for HIV and viral Hepatitis for all patients aged 18 and over and those with ongoing risk factors. Timo Inquiry Pt receiving controlled substance: No Lab Data Lab results reviewed: Yes I reviewed the patient's lab results.
[2024-03-17 09:26] VITALS: BP 172/96; PULSE 61; RESP 18; TEMP 36.9; O2SAT 98; BMI 43.9
[2024-03-17] MEDS: LIDOCAINE 1% 5ML PF VIAL IM (09:36)
[2024-03-17] MEDS: DEXAMETHASONE 4MG/ML 1ML VIAL 8 MG IM (09:37)
[2024-03-17] MEDS: cefTRIAXone 1GM VIAL 1 GM IM (09:37)
[2024-03-17 09:56] VITALS: BP 172/96; PULSE 61; RESP 18; TEMP 36.9
== END 2024-03-17 09:57 | disposition home or self-care (01) ==
PROVIDERS: Emergency Provider Nurse Practitioner Family; PCP Nurse Practitioner Family
DX: J20.9 Acute bronchitis, unspecified (principal); J32.9 Chronic sinusitis, unspecified
CPT/HCPCS: 96372; 99213; G0381; J0696; J1100

== ENCOUNTER 2024-08-03 14:50 | Outpatient (CLI) | payer BC, SELFPAY ==
[2024-08-03 18:15] LABS: Basophils % 0.7 % (0.1-2.0); Eosinophils # 0.2 Kmm3 (0.0-0.4); Eosinophils % 4.1 % (0.1-12.0); Hematocrit 46.3 % (42.0-52.0); Hemoglobin 15.4 g/dL (14.1-18.0); Immature Granulocytes # 0.01 10^3uL; Immature Granulocytes % 0.2 %; Lymphocytes # 1.7 K/mm3 (0.7-4.5); Lymphocytes % 31.4 % (10-50); Mean Corpuscular HGB Conc 33.3 g/dL (31.8-35.4); Mean Corpuscular Hemoglobin 30.5 pg (27.0-31.2); Mean Corpuscular Volume 91.7 fl (80-94); Mean Platelet Volume 10.7 fl (7.4-10.4); Monocytes # 0.4 K/mm3 (0.1-1.0); Monocytes % 8.2 % (1.7-9.3); Neutrophils % 55.4 % (37.0-80.0); Nucleated Red Blood Cells # 0 10^3/uL; Nucleated Red Blood Cells % 0 %; Platelet Count 232 K/mm3 (142-424); Red Blood Count 5.05 M/mm3 (4.60-6.20); Red Cell Distribution Width 12.9 % (11.5-17.5); Red Cell Distribution Width-SD 43.5 fL; White Blood Count 5.4 K/mm3 (4.8-10.8)
[2024-08-03 19:09] LABS: Alanine Aminotransferase 39 U/L (12-78); Albumin Level 4.6 g/dl (3.5-5.0); Albumin/Globulin Ratio 1.7 (1.1-1.8); Alkaline Phosphatase 78 U/L (38-126); Anion Gap 12.8 mEq/L (5-15); Aspartate Amino Transferase 31 U/L (17-59); Bilirubin,Total 0.7 mg/dl (0.2-1.3); Blood Urea Nitrogen 11 mg/dl (9-20); Calcium 9.6 mg/dl (8.4-10.2); Carbon Dioxide 30 mmol/L (22.0-30.0); Chloride 102 mmol/L (98-107); Chol/HDL Ratio 4.5 (1-3.5); Cholesterol 211 mg/dl (140-200); Estimated Glomerular Filt Rate 115 ml/min (>60); GFR (African American) 140 ML/MIN (>60); Globulin 2.7 g/dL (1.3-3.2); Glucose 87 mg/dl (74-100); HDL Cholesterol 47 mg/dl (40-60); Potassium 4.8 mmoL/L (3.5-5.1); Sodium 140 mmol/L (136-145); Total Protein,Serum 7.3 g/dl (6.3-8.2); Triglycerides 84 mg/dl (30-150); VLDL Cholesterol 17 mg/dL (0-40)
[2024-08-03 19:32] LABS: 25-OH Vitamin D, Total 16.6 ng/mL (30-100)
[2024-08-03 19:40] LABS: Thyroid Stimulating Hormone 0.79 uIU/mL (0.465-4.68)
[2024-08-03 19:56] LABS: HIV Combo NEGATIVE (Negative)
[2024-08-03 20:02] LABS: Hepatitis C Ab Qual. W/ RFX NEGATIVE (Negative)
[2024-08-03 20:11] LABS: Hemoglobin A1C 5.2 % (4.0-6.0)
== END 2024-08-03 23:59 | disposition home or self-care (01) ==
LOC: LAB.DROPOF 08-06 14:51
PROVIDERS: PCP Family Medicine; Visit Provider Family Medicine
DX: Z13.1 Encounter for screening for diabetes mellitus (principal); Z11.59 Encounter for screening for other viral diseases; Z11.4 Encounter for screening for human immunodeficiency virus [HIV]; I10 Essential (primary) hypertension; E55.9 Vitamin D deficiency, unspecified
CPT/HCPCS: 80053; 80061; 82306; 83036; 84443; 85025; 86803; 87389

== ENCOUNTER 2024-08-24 09:25 | Outpatient (CLI) | payer BC, SELFPAY ==
--- NOTE | 2024-08-24 10:00 | CT_ITS ---
FINAL REPORT TECHNIQUE: Thin section axial images were obtained through the paranasal sinuses without contrast. Reconstruction images were obtained from the axial data. Exam was performed using dose reduction techniques such as automated exposure control, adjustment of the mA and kV according to patient size, and use of iterative reconstruction technique. CLINICAL HISTORY: chronic sinusitis FINDINGS: There is mucoperiosteal thickening of the bilateral maxillary sinuses, bilateral ethmoid air cells, sphenoid sinus, and bilateral frontal sinuses. There is debris within the right maxillary sinus. The bilateral maxillary infundibulum are occluded by mucoperiosteal thickening. There is minimal bidirectional nasal septal deviation. The mastoid air cells are clear. Remaining soft tissues are unremarkable. IMPRESSION: Chronic penny sinusitis with a possible acute component in the right maxillary sinus. Reviewed, Interpreted and Dictated by Deepali Aquino MD Transcribed by Mirian Ho Authenticated and [facility]
== END 2024-08-24 23:59 | disposition home or self-care (01) ==
LOC: RAD 09:25
PROVIDERS: PCP Family Medicine; Visit Provider Student in an Organized Health Care Education/Training Program
DX: J32.9 Chronic sinusitis, unspecified (principal); J34.3 Hypertrophy of nasal turbinates
CPT/HCPCS: 70486

== ENCOUNTER 2024-09-03 09:25 | Outpatient (CLI) | payer BC, SELFPAY ==
[2024-09-03 19:35] LABS: Alanine Aminotransferase 39 U/L (12-78); Albumin Level 4.4 g/dl (3.5-5.0); Albumin/Globulin Ratio 1.3 (1.1-1.8); Anion Gap 10.8 mEq/L (5-15); Aspartate Amino Transferase 32 U/L (17-59); Blood Urea Nitrogen 17 mg/dl (9-20); Calcium 10.1 mg/dl (8.4-10.2); Carbon Dioxide 29 mmol/L (22.0-30.0); Chloride 98 mmol/L (98-107); Estimated Glomerular Filt Rate 99 ml/min (>60); GFR (African American) 120 ML/MIN (>60); Globulin 3.3 g/dL (1.3-3.2); Glucose 93 mg/dl (74-100); Potassium 4.8 mmoL/L (3.5-5.1); Sodium 133 mmol/L (136-145); Total Protein,Serum 7.7 g/dl (6.3-8.2); Triglycerides 103 mg/dl (30-150)
[2024-09-03 19:36] LABS: Alkaline Phosphatase 90 U/L (38-126); Chol/HDL Ratio 3.2 (1-3.5); Cholesterol 178 mg/dl (140-200); HDL Cholesterol 56 mg/dl (40-60); VLDL Cholesterol 21 mg/dL (0-40)
[2024-09-03 19:46] LABS: Direct LDL Cholesterol 90.23 mg/dL (100-129)
[2024-09-03 20:05] LABS: Prostate Specific Ag Screen 0.7 ng/ml (0.0-4.0)
== END 2024-09-03 23:59 | disposition home or self-care (01) ==
LOC: LAB.DROPOF 09-04 10:53
PROVIDERS: PCP Family Medicine; Visit Provider Family Medicine
DX: Z00.00 Encounter for general adult medical examination without abnormal findings (principal); I10 Essential (primary) hypertension
CPT/HCPCS: 80053; 80061; G0103

== ENCOUNTER 2024-09-28 08:26 | Outpatient (CLI) | payer BC, SELFPAY ==
--- NOTE | 2024-09-28 09:06 | ECG_ITS ---
APPROVED REPORT Exam: Resting ECG HR:62 bpm ECG Measurements Heart Rate 62 AXES WI 179 P 57 QRSd 105 QRS 35 QT 402 T 51 QTc 407 Conclusion SINUS RHYTHM NORMAL ECG INTERPRETATION BASED ON A DEFAULT AGE OF 40 YEARS UNCONFIRMED REPORT Electronically signed by : Everardo Zeng MD 09/30/2024 08:07:51
[2024-09-28 09:36] LABS: Hematocrit 40.2 % (42.0-52.0); Hemoglobin 14.1 g/dL (14.1-18.0); Immature Granulocytes % 0.6 %; Mean Corpuscular HGB Conc 35.1 g/dL (31.8-35.4); Mean Corpuscular Hemoglobin 31.3 pg (27.0-31.2); Mean Corpuscular Volume 89.1 fl (80-94); Nucleated Red Blood Cells % 0 %; Platelet Count 237 K/mm3 (142-424); Red Blood Count 4.51 M/mm3 (4.60-6.20); Red Cell Distribution Width-SD 41.0 fL; White Blood Count 10.0 K/mm3 (4.8-10.8)
[2024-09-28 09:45] LABS: Anion Gap 16.0 mEq/L (5-15); Blood Urea Nitrogen 16 mg/dl (9-20); Calcium 9.9 mg/dl (8.4-10.2); Carbon Dioxide 30 mmol/L (22.0-30.0); Chloride 92 mmol/L (98-107); Creatinine,Serum 1.30 mg/dl (0.66-1.25); Estimated Glomerular Filt Rate 57 ml/min (>60); GFR (African American) 68 ML/MIN (>60); Glucose 106 mg/dl (74-100); Potassium 4.0 mmoL/L (3.5-5.1); Sodium 134 mmol/L (136-145)
== END 2024-09-28 23:59 | disposition home or self-care (01) ==
LOC: PREOP 08:26
PROVIDERS: PCP Family Medicine; Visit Provider Student in an Organized Health Care Education/Training Program
DX: Z01.810 Encounter for preprocedural cardiovascular examination (principal); Z01.812 Encounter for preprocedural laboratory examination; E87.1 Hypo-osmolality and hyponatremia
CPT/HCPCS: 80048; 85025; 93005

== ENCOUNTER 2024-10-03 05:59 | Day surgery (SDC) | payer BC, SELFPAY ==
[2024-09-28 12:31] VITALS: BMI 42.0
[2024-10-03] VITALS (10 sets, daily range): BP systolic 120–149; BP diastolic 68–86; PULSE 71–91; RESP 16–18; TEMP 36.1–36.7; O2SAT 94–99
[2024-10-03] MEDS: LACTATED RINGERS 1000ML 1,000 ML 25 ML IV (06:20)
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
[2024-10-03] MEDS: OXYMETAZOLINE NASAL SPRAY 0.05% 15ML 15 ML NS (08:00)
[2024-10-03] MEDS: 0.9 % SODIUM CHLORIDE 500 ML 25 ML IV ×2 (08:00→10:41)
[2024-10-03] MEDS: BACITRACIN ZINC OINT 30GM TUBE 28 GM TP (08:00)
[2024-10-03] MEDS: LIDOCAINE 1% W/EPI 1:100,000 20ML VIAL 20 ML (08:00)
[2024-10-03] MEDS: CIPRO 0.3%-DEX 0.1% OTIC SUSP 7.5ML 7.5 ML OT (10:40)
--- NOTE | 2024-10-03 10:55 | P.OP_ITS ---
Date of procedure: 10/03/24 Pre-op Diagnosis:: deviated septum chronic sinusitis with nasal polyposis Post-op Diagnosis:: same Procedure performed:: revision septoplasty bilateral maxillary, total ethmoid, maxillary, and frontal endoscopic sinus surgery with tissue removal extracranial stereotactic image guidance Surgeon:: Elijah Randolph MD Anesthesia: GETA Estimated blood loss (mL): 50 Operative findings:: residual right deviated septum bilateral CRS with nasal polyps Operative note:: The patient was brought to the OR, laid in supine position, general anesthesia was induced. The patient was prepped and draped in usual fashion, and the extracranial stereotactic image guidance system was set up and confirmed to be working appropriately. Lidocaine with epinephrine 1: 100,000 was injected into the septum and the heads of the inferior turbinates. I for started by performing the revision septoplasty. Patient had a history of a septoplasty a couple years ago but still with fairly significant anterior right deviation. A hemitransfixion incision was made on the left side of the patient's septum. I elevated the mucosa off the left side in the subperichondrial plane. Patient appeared to have had a small portion of posterior inferior cartilage removed from the previous septoplasty. I then elevated the mucosa off the right side of the septum in the subperichondrial plane. He appeared to have a free-floating piece of cartilage that was protruding into the right nasal passage which was removed. He also had some residual cartilage in the caudal strut that was deviated to the right. I removed a small portion of it. Care was taken to leave over a centimeter and a half of cartilage in the dorsal and caudal strut to support the nose. I then turned my attention to the sinuses. Patient had bilateral nasal polypos is protruding down to the level of his inferior turbinates. First on the left side some of the nasal polyp tissue was removed and sent as sinus contents. A ball-tipped probe was used to identify the maxillary sinus os. The uncinate was reflected forward. Taken down with the back biter and the debrider. I then worked my way through the ethmoid air cells in the basal lamella with the Kerrison and debrider. Identified the sphenoid sinus os and it was entered with the Kerrison and enlarged. I then worked in a posterior to anterior fashion coming along the patient's skull base to the frontal sinus recess. I switched to the 30 degree scope and then using the frontal sinus instruments performed a frontal sinusotomy. Patient had nasal polyposis throughout the left side of his sinuses in addition to polypoid mucosa throughout which was removed. I then came to the right side where again he had extensive nasal polyposis. Ball-tipped probe was used to identify the uncinate process and it was reflected forward. Taken down with a backbiter and debrider deformed the maxillary sinusotomy. Patient had thick mucoid secretions in the maxillary sinus which were suctioned out. I then came through the ethmoid air cells in the basal lamella. I identified the sphenoid sinus os in its usual location it was entered with the Kerrison and then further enlarged with a Kerrison and debrider. I then came in a posterior to anterior fashion along the skull base to the frontal sinus recess. Using the 30 degree scope I identified the frontal sinus recess. He was narrower on the right side as such I used the frontal sinus balloon. With the image guidance I confirmed placement of the balloon in the frontal sinus outflow tract. The balloon was then dilated. This significantly helped to open the frontal sinus outflow tract on the right side. It was then further opened with the frontal sinus instruments. 4-0 plain gut suture was used in a quilting fashion to reapproximate the septal mucosal flaps. The hemitransfixion incision was closed with a chromic. Ciprodex soaked nova pack was then placed in the mL meatuses bilaterally. Nelson splints were then fashioned across the septum. His nose and mouth were suctioned out. All counts were correct he was then turned back over anesthesia to be awoken and extubated. Condition: stable Disposition: PACU Specimens:: sinus contents Complications:: none
--- NOTE | 2024-10-03 11:05 | P.PNANES_ITS ---
[facility] Anesthesia Record Part I Anesthesia Record I Intake, IV Amount: 1,000 Hydration: Adequate Estimated blood loss (mL): 50 Urine output (mL): 0 Blood Pressure: 125/79 SaO2: 97 Pulse Rate: 91 Airway Patency: Patent Respiratory Rate: 18 Temperature: 97 F Patient is:: Awake and Stable Stable to PACU at:: 11:10
== END 2024-10-03 12:22 | disposition home or self-care (01) ==
PROVIDERS: PCP Family Medicine; Visit Provider Student in an Organized Health Care Education/Training Program
PROC: (CPT 30520; principal; 2024-10-03 07:30)
DX: J32.4 Chronic pansinusitis (principal); J33.0 Polyp of nasal cavity; J34.2 Deviated nasal septum; I10 Essential (primary) hypertension; M10.9 Gout, unspecified; Z79.899 Other long term (current) drug therapy; Z59.89 Other problems related to housing and economic circumstances; Z59.71 Insufficient health insurance coverage
CPT/HCPCS: 30520; 31253; 31256; 96374; C1726; J0690; J1100; J1200; J2003; J2004; J2250; J2405; J2704; J3010; J7040; J7120

== ENCOUNTER 2024-11-02 11:08 | Outpatient (CLI) | payer BC, SELFPAY ==
[2024-11-02 15:35] LABS: Alanine Aminotransferase 41 U/L (12-78); Albumin Level 4.3 g/dl (3.5-5.0); Albumin/Globulin Ratio 1.5 (1.1-1.8); Alkaline Phosphatase 90 U/L (38-126); Anion Gap 12.8 mEq/L (5-15); Aspartate Amino Transferase 38 U/L (17-59); Bilirubin,Total 0.6 mg/dl (0.2-1.3); Blood Urea Nitrogen 8 mg/dl (9-20); Calcium 9.4 mg/dl (8.4-10.2); Carbon Dioxide 28 mmol/L (22.0-30.0); Chloride 101 mmol/L (98-107); Creatinine,Serum 0.80 mg/dl (0.66-1.25); Estimated Glomerular Filt Rate 99 ml/min (>60); GFR (African American) 120 ML/MIN (>60); Globulin 2.8 g/dL (1.3-3.2); Glucose 84 mg/dl (74-100); Potassium 4.8 mmoL/L (3.5-5.1); Sodium 137 mmol/L (136-145); Total Protein,Serum 7.1 g/dl (6.3-8.2)
[2024-11-02 16:58] LABS: 25-OH Vitamin D, Total 20.3 ng/mL (30-100)
== END 2024-11-02 23:59 ==
LOC: LAB.DROPOF 11-05 12:41
PROVIDERS: PCP Family Medicine; Visit Provider Family Medicine
DX: N17.9 Acute kidney failure, unspecified (principal); E55.9 Vitamin D deficiency, unspecified
CPT/HCPCS: 80053; 82306